=== PATIENT | female | born 1955 | race Caucasian/White ===

== ENCOUNTER → 2016-06-18 | Outpatient (CLI) | payer OTHER ==
--- NOTE | 2016-06-18 16:10 | CT ---
EXAMINATION TYPE: CT brain robby wo con DATE OF EXAM: 06/18/2016 4:02 PM COMPARISON: NONE HISTORY: 61-year-old female complaining of headache after head injury x1 week ago. CT DLP: 1257.9 mGycm Automated exposure control for dose reduction was used. Technique: Examination of the head was done in axial plane without intravenous contrast. Coronal and sagittal reconstructions performed. CT of the cervical spine was obtained in axial plane without intravenous injection of contrast mater ial. Coronal and sagittal reformatted images were obtained from the axial views for evaluation of f ractures, spinal alignment and canal. FINDINGS: Head: There is no evidence of acute intracranial hemorrhage, acute ischemic changes, mass, mass-effect, or extra-axial fluid collection. There is no effacement of cerebral sulci or basal subarachnoid cister ns. There is no hydrocephalus. There is no midline shift. Granger-white matter distinction is preserv ed. Either a prominent perivascular space or old lacunar infarct right basal ganglia. Paranasal sinuses and mastoid air cells well pneumatized. Orbits and globes are intact. No calvarial fracture. Cervical spine: No craniocervical junction abnormality, predental space widening, or prevertebral soft tissue swellin g. There is reversal of the normal cervical lordosis but with preserved alignment. No acute fracture. Moderate multilevel disc/endplate degenerative change with disc osteophyte complex formation and pau esponding facet and uncovertebral joint arthropathy. There are superimposed disc bulges at C3-C4 and C4-C5 resulting in mild and moderate spinal canal luís rowing, respectively. At C4-C5, there is mild to moderate bilateral neuroforaminal stenoses. At C5-C6, there is moderate left and mild right neuroforaminal stenosis. At C6/C7, there is mild left greater than right neuroforaminal stenosis. Sagittal and coronal reformatted images confirm above findings. COMBINED IMPRESSION: 1. No acute intracranial abnormality seen. 2. No acute fracture or malalignment of the cervical spine. There is reversal of the normal cervical lordosis and moderate multilevel spondylotic change. A superimposed posterior disc bulge at C4-C5 and C3-C4 result in moderate and mild spinal canal stenoses, respectively.
== END | disposition home or self-care (01) ==
LOC: RADCTMAIN 15:34
PROVIDERS: ATTEND Emergency Medicine
DX: S00.03XA Contusion of scalp, initial encounter (principal); M48.02 Spinal stenosis, cervical region; M50.21 Other cervical disc displacement, high cervical region; M47.812 Spondylosis without myelopathy or radiculopathy, cervical region
CPT/HCPCS: 70450; 72125

== ENCOUNTER → 2016-07-19 | Outpatient (CLI) | payer BC ==
[2016-07-19 16:55] LABS: Blood Urea Nitrogen 33 mg/dL (7-17); Non-African American GFR(MDRD) >60 (>60 ml/min/1.73 sqM)
== END | disposition home or self-care (01) ==
LOC: LABWHC1 15:53
PROVIDERS: ATTEND Internal Medicine
DX: G23.8 Other specified degenerative diseases of basal ganglia (principal)
CPT/HCPCS: 36415; 82565; 84520

== ENCOUNTER → 2016-07-20 | Outpatient (CLI) | payer BC ==
--- NOTE | 2016-07-21 08:38 | MR ---
MRI brain with and without contrast HISTORY: Abnormal CT scan brain, G27.8 calcium, scalp contusion Multiplanar multisequence and postcontrast images obtained through the brain following 10 cc MultiHan ce IV. Correlation to head CT June FINDINGS: There is no restricted diffusion. Small choroidal fissure cyst on the right suspected corre lates with patient's head CT finding. No hemorrhage or hydrocephalus. Scattered hyperintensities are present in the periventricular white matter on inversion recovery and T2-weighted sequences, there ar e approximately 30-40 lesions, the largest is only 5 to 6 mm in size. There is no abnormal enhancemen t within the brain. The orbits show symmetric. Corpus callosum, pituitary, cervical medullary junctio n, cerebellopontine angles are unremarkable. IMPRESSION: No significant abnormality is evident.
== END | disposition home or self-care (01) ==
LOC: RADMRIMAIN 18:39
PROVIDERS: ATTEND Internal Medicine
DX: G23.8 Other specified degenerative diseases of basal ganglia (principal)
CPT/HCPCS: 70553; A9577

== ENCOUNTER 2016-08-08 12:07 | Emergency (ER) | payer BC ==
[2016-08-08 12:23] VITALS: RESP 18
[2016-08-08] MEDS ORDERED: SODIUM CHLORIDE 0.9% 1,000 ML IV ONE (13:58)
[2016-08-08] MEDS ORDERED: HYDROmorphone 1 MG/ML 1 ML SYRINGE IVP STA (13:58)
[2016-08-08] MEDS ORDERED: ONDANSETRON 4 MG/2 ML VIAL IVP STA (13:58)
--- NOTE | 2016-08-08 14:11 | ED ---
Abdominal Pain HPI - General Chief Complaint: Abdominal Pain Stated Complaint: POSS KIDNEY STONE, RT SIDE Time Seen by Provider: 08/08/16 13:34 Source: patient, RN notes reviewed Mode of arrival: ambulatory Limitations: no limitations - History of Present Illness Initial Comments: Patient is a 51-year-old female presents to the emergency room for reevaluation of right-sided flank pain. Patient states she has a history of kidney stones. Patient states this feels like a kidney stone. Patient states the pain began this morning when she got up. Patient states the pain has been worsening in her right flank throughout the day. Patient states she is nauseous but denies vomiting. Patient denies abdominal pain. Patient states she has history of right ovarian cyst removal. Patient denies chest pain or shortness of breath. Patient denies headache or dizziness. Patient denies pain or burning during, trouble urinating or blood in urine. - Related Data Home Medications Medication Instructions Recorded Confirmed Multivitamins, Thera [Multivitamin] 1 tab PO DAILY 05/23/14 08/08/16 [place]-3 Fatty Acids/Fish Oil [Fish 1 cap PO DAILY 05/23/14 08/08/16 Oil 1,000 mg Softgel] Calcium Carbonate [Calcium] 600 mg PO DAILY 01/16/15 08/08/16 Cholecalciferol [Vitamin D3] 2,000 unit PO DAILY 01/16/15 08/08/16 Albuterol Sulfate [Proair Hfa] 1 - 2 puff INHALATION RT-Q6H PRN 08/08/16 Ascorbic Acid [Vitamin C] 500 mg PO DAILY 08/08/16 08/08/16 Atorvastatin Calcium [Lipitor] 20 mg PO HS 08/08/16 08/08/16 Biotin 5 mg PO DAILY 08/08/16 08/08/16 Fluticasone/Salmeterol [Advair 1 puff INHALATION RT-BID 08/08/16 08/08/16 100-50 Diskus] Loratadine 10 mg PO DAILY 08/08/16 08/08/16 Ubidecarenone [Co Q-10] 100 mg PO DAILY 08/08/16 08/08/16 Previous Rx's Medication Instructions Recorded Acetaminophen with Codeine 1 tab PO Q4H PRN #10 tab 08/08/16 [Tylenol w/codeine #3] Allergies Allergy/AdvReac Type Severity Reaction Status Date / Time silk sutures Allergy Itching Uncoded 08/08/16 12:23 Review of Systems ROS Statement: Those systems with pertinent positive or pertinent negative responses have been documented in the HPI. ROS Other: All systems not noted in ROS Statement are negative. Past Medical History Past Medical History: Asthma, Hyperlipidemia Additional Past Medical History / Comment(s): kidney stones History of Any Multi-Drug Resistant Organisms: None Reported Past Surgical History: Orthopedic Surgery Additional Past Surgical History / Comment(s): cyst on ovary removed, meniscus tear R and L knees Past Anesthesia/Blood Transfusion Reactions: No Reported Reaction Past Psychological History: No Psychological Hx Reported Smoking Status: Never smoker Past Alcohol Use History: None Reported Past Drug Use History: None Reported - Past Family History Mother Family Medical History: No Reported History General Exam - General Exam Comments Initial Comments: Sitting in exam room, no distress. Limitations: no limitations General appearance: alert, in no apparent distress Head exam: Present: atraumatic, normocephalic, normal inspection Eye exam: Present: normal appearance ENT exam: Present: normal exam Neck exam: Present: normal inspection Respiratory exam: Present: normal lung sounds bilaterally. Absent: respiratory distress Cardiovascular Exam: Present: regular rate, normal rhythm, normal heart sounds GI/Abdominal exam: Present: soft, normal bowel sounds. Absent: distended, tenderness, guarding, rebound, rigid Back exam: Present: normal inspection, full ROM, CVA tenderness (R). Absent: CVA tenderness (L) Neurological exam: Present: alert, oriented X3, CN II-XII intact, normal gait Psychiatric exam: Present: normal affect, normal mood Skin exam: Present: warm, dry, intact, normal color. Absent: rash Course Vital Signs 08/08/16 08/08/16 08/08/16 12:19 17:01 17:38 Temperature 98.0 F 98.5 F Pulse Rate 65 72 68 Respiratory 18 18 18 Rate Blood Pressure 186/92 144/73 163/82 O2 Sat by Pulse 100 100 100 Oximetry Medical Decision Making - Medical Decision Making Patient is a 61-year-old female presents to the emergency room for evaluation of right-sided flank pain. WBC 14.3. Patient also noted to have slightly elevated AST/ALT. Patient afebrile. Patient states she is feeling better after medications given. No blood noted in the urine. Offered ultrasound to rule out cholecystitis. Patient declined at this time and states she will follow-up with her primary care provider. Patient states this feels like her normal kidney stone pain and declined further workup. Patient states she has an appointment with her primary care provider tomorrow morning. Patient states she understands everything that was discussed with her. Return parameters discussed. Case discussed Dr. Camacho. - Lab Data Result diagrams: 08/08/16 14:30 08/08/16 14:30 Lab Results 08/08/16 08/08/16 08/08/16 Range/Units 14:30 14:30 16:30 WBC 14.3 H (3.8-10.6) k/uL RBC 5.04 (3.80-5.40) m/uL Hgb 15.0 (11.4-16.0) gm/dL Hct 44.3 (34.0-46.0) % MCV 87.8 (80.0-100.0) fL MCH 29.7 (25.0-35.0) pg MCHC 33.9 (31.0-37.0) g/dL RDW 13.2 (11.5-15.5) % Plt Count 206 (150-450) k/uL Neutrophils % 85 % Lymphocytes % 7 % Monocytes % 6 % Eosinophils % 2 % Basophils % 1 % Neutrophils # 12.1 H (1.3-7.7) k/uL Lymphocytes # 1.0 (1.0-4.8) k/uL Monocytes # 0.8 (0-1.0) k/uL Eosinophils # 0.3 (0-0.7) k/uL Basophils # 0.1 (0-0.2) k/uL Sodium 141 (137-145) mmol/L Potassium 4.4 (3.5-5.1) mmol/L Chloride 107 (98-107) mmol/L Carbon Dioxide 28 (22-30) mmol/L Anion Gap 6 mmol/L BUN 29 H (7-17) mg/dL Creatinine 0.91 (0.52-1.04) mg/dL Est GFR (MDRD) Af Amer >60 (>60 ml/min/1.73 sqM) Est GFR (MDRD) Non-Af >60 (>60 ml/min/1.73 sqM) Glucose 109 H (74-99) mg/dL Calcium 9.7 (8.4-10.2) mg/dL Total Bilirubin 0.6 (0.2-1.3) mg/dL AST 44 H (14-36) U/L ALT 68 H (9-52) U/L Alkaline Phosphatase 85 (38-126) U/L Total Protein 7.0 (6.3-8.2) g/dL Albumin 4.1 (3.5-5.0) g/dL Urine Color Light Yellow Urine Appearance Clear (Clear) Urine pH 8.0 (5.0-8.0) Ur Specific [place] 1.013 (1.001-1.035) Urine Protein Negative (Negative) Urine Glucose (UA) Negative (Negative) Urine Ketones 1+ H (Negative) Urine Blood Negative (Negative) Urine Nitrite Negative (Negative) Urine Bilirubin Negative (Negative) Urine Urobilinogen <2.0 (<2.0) mg/dL Ur Leukocyte Esterase Negative (Negative) - Radiology Data Radiology results: report reviewed, image reviewed Disposition Clinical Impression: Flank pain Disposition: HOME SELF-CARE Condition: Good Instructions: Flank Pain (ED) Additional Instructions: Take Tylenol or Motrin as pain. Tylenol 3 needed for severe pain. Please follow up with primary care provider in 24-48 hours for reevaluation. If any new symptom arises or symptoms worsen, return to ER as soon as possible. Prescriptions: Acetaminophen with Codeine [Tylenol w/codeine #3] 1 tab PO Q4H PRN #10 tab PRN Reason: Pain Referrals: Lucinda Prince MD [Primary Care Provider] - 1-2 days Time of Disposition: 17:23
[2016-08-08 14:44] LABS: Basophils # (A) 0.1 k/uL (0-0.2); Basophils % (A) 1 %; CH 29.1; CHCM 33.3; Eosinophils # (A) 0.3 k/uL (0-0.7); Eosinophils % (A) 2 %; HCT 44.3 % (34.0-46.0); HDW 2.77; Luc # (Auto) 0.11; Luc % (Auto) 1; Lymphocytes % (A) 7 %; MCH 29.7 pg (25.0-35.0); MCHC 33.9 g/dL (31.0-37.0); MCV 87.8 fL (80.0-100.0); Mean Platelet Volume 6.7; Monocytes # (A) 0.8 k/uL (0-1.0); Monocytes % (A) 6 %; Neutrophils # (A) 12.1 k/uL (1.3-7.7); Neutrophils % (A) 85 %; RBC 5.04 m/uL (3.80-5.40); RDW 13.2 % (11.5-15.5); WBC 14.3 k/uL (3.8-10.6); WBC (Perox) 14.38
[2016-08-08 14:54] LABS: ALT 68 U/L (9-52); AST 44 U/L (14-36); Alkaline Phosphatase 85 U/L (38-126); Anion Gap 6 mmol/L; Blood Urea Nitrogen 29 mg/dL (7-17); Calcium 9.7 mg/dL (8.4-10.2); Carbon Dioxide 28 mmol/L (22-30); Chloride 107 mmol/L (98-107); Glucose 109 mg/dL (74-99); Non-African American GFR(MDRD) >60 (>60 ml/min/1.73 sqM); Potassium 4.4 mmol/L (3.5-5.1); Sodium 141 mmol/L (137-145); Total Bilirubin 0.6 mg/dL (0.2-1.3)
--- NOTE | 2016-08-08 15:53 | XR ---
EXAMINATION TYPE: XR KUB DATE OF EXAM: 08/08/2016 3:24 PM CLINICAL DATA: 61-year-old female right-sided flank pain, [facility] COMPARISON: 05/23/2014 FINDINGS: Lung bases are clear. No evidence for free intraperitoneal air. No dilated small bowel or air-fluid levels. Scattered air and stool seen throughout the colon extendi ng distally into the rectum. Scattered mild to moderate stool. No suspicious calcifications identified. Phleboliths in the pelvis. IMPRESSION: No evidence of bowel obstruction or free intraperitoneal air.
[2016-08-08 17:03] LABS: Appearance,Urine Clear (Clear); Bilirubin,Urine Negative (Negative); Glucose,Urine (UA) Negative (Negative); Ketones,Urine 1+ (Negative); Leukocyte Esterase,Urine Negative (Negative); Nitrite,Urine Negative (Negative); Protein,Urine Negative (Negative); Specific Gravity,Urine 1.013 (1.001-1.035); UA Billing (MACRO vs. MICRO) CHEM; Urobilinogen,Urine <2.0 mg/dL (<2.0)
[2016-08-08] MEDS ORDERED: ACET/COD 300 MG/30 MG STARTER PACK 6 TAB BTL PO STA (17:35)
[2016-08-08 17:39] VITALS: BP 163/82; PULSE 68; TEMP 98.5
== END 2016-08-08 17:38 | disposition home or self-care (01) ==
LOC: EC 12:07
DX: R10.9 Unspecified abdominal pain (principal); R11.0 Nausea; R74.0 Nonspecific elevation of levels of transaminase and lactic acid dehydrogenase [LDH]; J45.909 Unspecified asthma, uncomplicated; E78.5 Hyperlipidemia, unspecified; Z79.51 Long term (current) use of inhaled steroids; Z79.899 Other long term (current) drug therapy; Z87.442 Personal history of urinary calculi; Z91.048 Other nonmedicinal substance allergy status
CPT/HCPCS: 99284; 96374; 96375; 96361; 36415; 80053; 85025; 81003; 74000; J2405; J1170

== ENCOUNTER 2016-08-09 17:25 | Emergency (ER) | payer BC ==
--- NOTE | 2016-08-09 17:52 | ED ---
General Adult HPI - General Chief complaint: Recheck/Abnormal Lab/Rx Stated complaint: back and abd pain Time Seen by Provider: 08/09/16 17:42 Source: patient, RN notes reviewed Mode of arrival: ambulatory Limitations: no limitations - History of Present Illness Initial comments: Patient's a 61-year-old female who presents emergency room today with chief complaint of being CT of the abdomen and pelvis. She does admit that she went to her family doctor's office just prior to arrival and was advised complete emergency room for a CAT scan. Patient does admit to history of kidney stones. States pain started yesterday. Does admit that in the right flank. Describes as "sharp". Patient states currently the pain is much improved after Toradol shot given to her in her doctor's office. Patient states pain and symptoms seem similar to kidney stones or sediment past. States her family doctor advised come here to the emergency room to have a CT of the abdomen and pelvis performed. She does admit that she was seen here in the emergency room yesterday had labs and x-ray obtained. Patient denies any recent fever, chills, shortness of breath, chest pain, numbness or tingling, dysuria or hematuria, constipation or diarrhea, headaches or visual changes, or any other complaints. - Related Data Home Medications Medication Instructions Recorded Confirmed Multivitamins, Thera [Multivitamin] 1 tab PO DAILY 05/23/14 08/09/16 [place]-3 Fatty Acids/Fish Oil [Fish 1 cap PO DAILY 05/23/14 08/09/16 Oil 1,000 mg Softgel] Calcium Carbonate [Calcium] 600 mg PO DAILY 01/16/15 08/09/16 Cholecalciferol [Vitamin D3] 2,000 unit PO DAILY 01/16/15 08/09/16 Ascorbic Acid [Vitamin C] 500 mg PO DAILY 08/08/16 08/09/16 Atorvastatin Calcium [Lipitor] 20 mg PO HS 08/08/16 08/09/16 Biotin 5 mg PO DAILY 08/08/16 08/09/16 Fluticasone/Salmeterol [Advair 1 puff INHALATION RT-DAILY 08/08/16 08/09/16 100-50 Diskus] Loratadine 10 mg PO DAILY PRN 08/08/16 08/09/16 Ubidecarenone [Co Q-10] 100 mg PO DAILY 08/08/16 08/09/16 Carboxymethylcellulose Sodium 1 drop BOTH EYES DAILY PRN 08/09/16 08/09/16 [Refresh Tears] Previous Rx's Medication Instructions Recorded Hydrocodone/Acetaminophen [[place] 1 each PO Q6HR PRN #20 tab 08/09/16 5-325] Ibuprofen [Motrin] 600 mg PO Q6HR PRN #40 day 08/09/16 Ondansetron Odt [Zofran ODT] 4 mg PO Q8HR PRN #20 tab 08/09/16 Tamsulosin [Flomax] 0.4 mg PO DAILY #10 cap 08/09/16 Allergies Allergy/AdvReac Type Severity Reaction Status Date / Time silk sutures Allergy Itching Uncoded 08/08/16 12:23 Review of Systems ROS Statement: Those systems with pertinent positive or pertinent negative responses have been documented in the HPI. ROS Other: All systems not noted in ROS Statement are negative. Past Medical History Past Medical History: Asthma, Hyperlipidemia Additional Past Medical History / Comment(s): kidney stones History of Any Multi-Drug Resistant Organisms: None Reported Past Surgical History: Orthopedic Surgery Additional Past Surgical History / Comment(s): cyst on ovary removed, meniscus tear R and L knees Past Anesthesia/Blood Transfusion Reactions: No Reported Reaction Past Psychological History: No Psychological Hx Reported Smoking Status: Never smoker Past Alcohol Use History: None Reported Past Drug Use History: None Reported - Past Family History Mother Family Medical History: No Reported History General Exam - General Exam Comments Initial Comments: General: The patient is awake and alert, in no distress, and does not appear acutely ill. Eye: Pupils are equal, round and reactive to light, extra-ocular movements are intact. No nystagmus. There is normal conjunctiva bilaterally. No signs of icterus. Ears, nose, mouth and throat: There are moist mucous membranes and no oral lesions. Neck: The neck is supple, there is no tenderness or JVD. Cardiovascular: There is a regular rate and rhythm. No murmur, rub or gallop is appreciated. Respiratory: Lungs are clear to auscultation, respirations are non-labored, breath sounds are equal. No wheezes, stridor, rales, or rhonchi. Gastrointestinal: Soft, non-distended, non-tender abdomen without masses or organomegaly noted. There is no rebound or guarding present. No CVA tenderness. Bowel sounds are unremarkable. Musculoskeletal: Normal ROM, no tenderness. Strength 5/5. Sensation intact. Pulses equal bilaterally 2+. Neurological: A&O x 3. CN II-XII intact, There are no obvious motor or sensory deficits. Coordination appears grossly intact. Speech is normal. Skin: Skin is warm and dry and no rashes or lesions are noted. Psychiatric: Cooperative, appropriate mood & affect, normal judgment. Limitations: no limitations Course Vital Signs 08/09/16 08/09/16 17:32 18:15 Temperature 99.4 F 99.1 F Pulse Rate 76 69 Respiratory 20 16 Rate Blood Pressure 132/69 135/77 O2 Sat by Pulse 98 97 Oximetry Medical Decision Making - Medical Decision Making Patient's CT reviewed and shows [id number] right uropathy secondary to a 4 2 mm calcification within the distal posterior right ureteral the UVJ. Patient given pain medication along with Flomax advised follow-up family doctor tomorrow. Disposition Clinical Impression: Kidney stone Disposition: HOME SELF-CARE Condition: Good Instructions: Kidney Stones (ED) Additional Instructions: Please use medication as discussed. Please follow-up with family doctor in the next 2 days of symptoms have not improved. Please return to emergency room if the symptoms increase or worsen or for any other concerns. Prescriptions: Hydrocodone/Acetaminophen [[place] 5-325] 1 each PO Q6HR PRN #20 tab PRN Reason: Pain Ibuprofen [Motrin] 600 mg PO Q6HR PRN #40 day PRN Reason: Pain Ondansetron Odt [Zofran ODT] 4 mg PO Q8HR PRN #20 tab PRN Reason: Nausea Tamsulosin [Flomax] 0.4 mg PO DAILY #10 cap Time of Disposition: 19:00
[2016-08-09 18:21] VITALS: RESP 16; TEMP 99.1
--- NOTE | 2016-08-09 18:45 | CT ---
EXAMINATION TYPE: CT abdomen pelvis wo con DATE OF EXAM: 08/09/2016 6:16 PM COMPARISON: NONE HISTORY: Pt states of left side abdominal pain. CT DLP: 266.7 mGycm Automated exposure control for dose reduction was used. TECHNIQUE: Helical acquisition of images was performed from the lung bases through the pelvis. FINDINGS: LUNG BASES: No significant abnormality is appreciated. LIVER/GB: No significant abnormality is appreciated. PANCREAS: No significant abnormality is seen. SPLEEN: No significant abnormality is seen. ADRENALS: No significant abnormality is seen. KIDNEYS: The right renal parenchyma is engorged and there is mild/moderate hydronephrosis and hydrour eter down to a 4 x 2 mm distalmost right ureteral calcification at the ureterovesical junction. There is edematous change throughout the right perirenal space. There are no focal fluid collections and n o abnormal gas collections. Bilateral 1 and 2 mm renal calcifications are also noted. There is no left obstructive uropathy. The urinary bladder is unremarkable. FREE AIR: No free air is visualized RETROPERITONEAL ADENOPATHY: None visualized REPRODUCTIVE ORGANS: No significant abnormality is seen URINARY BLADDER: No significant abnormality is seen. PELVIC ADENOPATHY: None visualized. OSSEOUS STRUCTURES: No significant abnormality is seen. BOWEL: No significant abnormality is seen. OTHER: Without intravenous contrast there is limited sensitivity for solid visceral lesions and intra vascular pathology. IMPRESSION: MILD/MODERATE RIGHT OBSTRUCTIVE UROPATHY SECONDARY TO A 4 X 2 MM CALCIFICATION WITHIN THE DISTAL MOST RIGHT URETER AT THE UVJ.
[2016-08-09] MEDS ORDERED: HYDROmorphone 1 MG/ML 1 ML SYRINGE IM STA (18:57)
[2016-08-09 19:38] VITALS: BP 139/79; PULSE 75
== END 2016-08-09 19:38 | disposition home or self-care (01) ==
LOC: EC 17:25
DX: N20.0 Calculus of kidney (principal); N28.89 Other specified disorders of kidney and ureter; J45.909 Unspecified asthma, uncomplicated; E78.5 Hyperlipidemia, unspecified; Z79.51 Long term (current) use of inhaled steroids; Z79.899 Other long term (current) drug therapy; Z91.048 Other nonmedicinal substance allergy status
CPT/HCPCS: 74176; 99284; 96372; J1170

== ENCOUNTER 2016-09-24 18:26 | Emergency (ER) | payer BC ==
[2016-09-24 18:33] VITALS: RESP 18; TEMP 97.8
[2016-09-24] MEDS ORDERED: ONDANSETRON 4 MG/2 ML VIAL IVP STA (19:07)
[2016-09-24] MEDS ORDERED: HYDROmorphone 1 MG/ML 1 ML SYRINGE IVP STA (19:07)
[2016-09-24] MEDS ORDERED: SODIUM CHLORIDE 0.9% 1,000 ML IV STA (19:07)
[2016-09-24] MEDS ORDERED: KETOROLAC 30 MG/ML 1 ML VIAL IVP STA (19:07)
[2016-09-24 19:42] LABS: Basophils # (A) 0.1 k/uL (0-0.2); Basophils % (A) 1 %; CH 29.6; CHCM 34.2; Eosinophils # (A) 0.5 k/uL (0-0.7); Eosinophils % (A) 7 %; HCT 40.1 % (34.0-46.0); HGB 13.7 gm/dL (11.4-16.0); Luc % (Auto) 3; Lymphocytes # (A) 1.5 k/uL (1.0-4.8); Lymphocytes % (A) 18 %; MCH 29.8 pg (25.0-35.0); MCHC 34.2 g/dL (31.0-37.0); MCV 87.1 fL (80.0-100.0); Mean Platelet Volume 6.9; Monocytes # (A) 0.5 k/uL (0-1.0); Monocytes % (A) 6 %; Neutrophils # (A) 5.3 k/uL (1.3-7.7); Neutrophils % (A) 66 %; RBC 4.61 m/uL (3.80-5.40); RDW 13.2 % (11.5-15.5)
[2016-09-24 19:44] LABS: Amorphous Sediment,Urine Occasional /hpf; Appearance,Urine Cloudy (Clear); Bilirubin,Urine Negative (Negative); Glucose,Urine (UA) Negative (Negative); Ketones,Urine Negative (Negative); Leukocyte Esterase,Urine Moderate (Negative); Mucus,Urine Rare /hpf; Nitrite,Urine Negative (Negative); PH, Urine 7.5 (5.0-8.0); Particle Count 3729; Protein,Urine Trace (Negative); RBC,Urine 6 /hpf (0-5); Specific Gravity,Urine 1.016 (1.001-1.035); Squamous Epithelial Cell,Urine <1 /hpf (0-4); UA Billing (MACRO vs. MICRO) MICRO; Urobilinogen,Urine <2.0 mg/dL (<2.0); WBC,Urine 11 /hpf (0-5)
[2016-09-24 19:51] LABS: ALT 32 U/L (9-52); AST 26 U/L (14-36); Alkaline Phosphatase 79 U/L (38-126); Amylase 46 U/L (30-110); Anion Gap 9 mmol/L; Blood Urea Nitrogen 28 mg/dL (7-17); Calcium 9.5 mg/dL (8.4-10.2); Carbon Dioxide 29 mmol/L (22-30); Chloride 106 mmol/L (98-107); Glucose 99 mg/dL (74-99); Non-African American GFR(MDRD) 58 (>60 ml/min/1.73 sqM); Potassium 4.5 mmol/L (3.5-5.1); Sodium 144 mmol/L (137-145); Total Bilirubin 0.6 mg/dL (0.2-1.3); Total Protein 6.8 g/dL (6.3-8.2)
--- NOTE | 2016-09-24 19:57 | XR ---
EXAMINATION TYPE: XR KUB DATE OF EXAM: 09/24/2016 COMPARISON: NONE INDICATION: Abdomen pain right flank pain TECHNIQUE: Single view abdomen upright view FINDINGS: There is a normal bowel gas pattern. Psoas margins are normal. No organomegaly is present. No free air is evident. No differential air-fluid levels are present. Mild fecal retention is present . Suspicious renal or ureteral calcifications are not identified. IMPRESSION: 1. Mild fecal retention
--- NOTE | 2016-09-24 20:15 | ED ---
Abdominal Pain HPI - General Chief Complaint: Abdominal Pain Stated Complaint: back and side pain Time Seen by Provider: 09/24/16 19:01 Source: patient Mode of arrival: ambulatory Limitations: no limitations - History of Present Illness Initial Comments: 61-year-old female presents emergency room chief complaint of acute right flank pain today. Patient reports that she knows that she has history of case and some blisters that this is a kidney stone moving. Patient states that she has no nausea. She reports that she's had normal bowel movements and urination. Patient states that she's a history of oophorectomy, no other abdominal surgeries. - Related Data Home Medications Medication Instructions Recorded Confirmed Multivitamins, Thera [Multivitamin] 1 tab PO DAILY 05/23/14 09/24/16 [place]-3 Fatty Acids/Fish Oil [Fish 1 cap PO DAILY 05/23/14 09/24/16 Oil 1,000 mg Softgel] Calcium Carbonate [Calcium] 600 mg PO DAILY 01/16/15 09/24/16 Cholecalciferol [Vitamin D3] 2,000 unit PO DAILY 01/16/15 09/24/16 Ascorbic Acid [Vitamin C] 500 mg PO DAILY 08/08/16 09/24/16 Atorvastatin Calcium [Lipitor] 20 mg PO HS 08/08/16 09/24/16 Biotin 5 mg PO DAILY 08/08/16 09/24/16 Fluticasone/Salmeterol [Advair 1 puff INHALATION RT-DAILY 08/08/16 09/24/16 100-50 Diskus] Loratadine 10 mg PO DAILY PRN 08/08/16 09/24/16 Ubidecarenone [Co Q-10] 100 mg PO DAILY 08/08/16 09/24/16 Carboxymethylcellulose Sodium 1 drop BOTH EYES DAILY PRN 08/09/16 09/24/16 [Refresh Tears] Previous Rx's Medication Instructions Recorded HYDROcodone/APAP 5-325MG [[place] 1 tab PO Q6HR PRN #12 tab 09/24/16 5-325] Allergies Allergy/AdvReac Type Severity Reaction Status Date / Time silk sutures Allergy Itching Uncoded 09/24/16 18:33 Review of Systems ROS Statement: Those systems with pertinent positive or pertinent negative responses have been documented in the HPI. ROS Other: All systems not noted in ROS Statement are negative. Past Medical History Past Medical History: Asthma, Hyperlipidemia Additional Past Medical History / Comment(s): kidney stones History of Any Multi-Drug Resistant Organisms: None Reported Past Surgical History: Orthopedic Surgery Additional Past Surgical History / Comment(s): cyst on ovary removed, meniscus tear R and L knees Past Anesthesia/Blood Transfusion Reactions: No Reported Reaction Past Psychological History: No Psychological Hx Reported Smoking Status: Never smoker Past Alcohol Use History: None Reported Past Drug Use History: None Reported - Past Family History Mother Family Medical History: No Reported History General Exam Limitations: no limitations General appearance: alert, in no apparent distress Head exam: Present: atraumatic, normocephalic, normal inspection Eye exam: Present: normal appearance, PERRL, EOMI. Absent: scleral icterus, conjunctival injection, periorbital swelling ENT exam: Present: normal exam, mucous membranes moist Neck exam: Present: normal inspection. Absent: tenderness, meningismus, lymphadenopathy Respiratory exam: Present: normal lung sounds bilaterally. Absent: respiratory distress, wheezes, rales, rhonchi, stridor Cardiovascular Exam: Present: regular rate, normal rhythm, normal heart sounds. Absent: systolic murmur, diastolic murmur, rubs, gallop, clicks GI/Abdominal exam: Present: soft, normal bowel sounds. Absent: distended, tenderness, guarding, rebound, rigid Extremities exam: Present: normal inspection, full ROM, normal capillary refill. Absent: tenderness, pedal edema, joint swelling, calf tenderness Back exam: Present: normal inspection Neurological exam: Present: alert, oriented X3, CN II-XII intact Psychiatric exam: Present: normal affect, normal mood Skin exam: Present: warm, dry, intact, normal color. Absent: rash Course Vital Signs 09/24/16 09/24/16 18:29 20:44 Temperature 97.8 F 97.8 F Pulse Rate 69 70 Respiratory 18 18 Rate Blood Pressure 204/98 183/88 O2 Sat by Pulse 100 100 Oximetry Medical Decision Making - Medical Decision Making Patient's lab work was reviewed. Mildly elevated lipase. KUB x-ray moderate stool burden. Patient will be sent home with magnesium citrate. Patient also be given medication for pain for the kidney stone. Discussed reports a taking a stool softener when on pain medication. CT scan from one month ago shows signs of retained kidney stones, with small amount of blood it is likely a subsequent kidney stone. PAtient does not want another CT scan today. Patient agrees to treatment plan will comply. Return parameters were discussed. - Lab Data Result diagrams: 09/24/16 19:25 09/24/16 19:25 Lab Results 09/24/16 09/24/16 09/24/16 Range/Units 19:25 19:25 19:25 WBC 8.0 (3.8-10.6) k/uL RBC 4.61 (3.80-5.40) m/uL Hgb 13.7 (11.4-16.0) gm/dL Hct 40.1 (34.0-46.0) % MCV 87.1 (80.0-100.0) fL MCH 29.8 (25.0-35.0) pg MCHC 34.2 (31.0-37.0) g/dL RDW 13.2 (11.5-15.5) % Plt Count 230 (150-450) k/uL Neutrophils % 66 % Lymphocytes % 18 % Monocytes % 6 % Eosinophils % 7 % Basophils % 1 % Neutrophils # 5.3 (1.3-7.7) k/uL Lymphocytes # 1.5 (1.0-4.8) k/uL Monocytes # 0.5 (0-1.0) k/uL Eosinophils # 0.5 (0-0.7) k/uL Basophils # 0.1 (0-0.2) k/uL Sodium 144 (137-145) mmol/L Potassium 4.5 (3.5-5.1) mmol/L Chloride 106 (98-107) mmol/L Carbon Dioxide 29 (22-30) mmol/L Anion Gap 9 mmol/L BUN 28 H (7-17) mg/dL Creatinine 0.98 (0.52-1.04) mg/dL Est GFR (MDRD) Af Amer >60 (>60 ml/min/1.73 sqM) Est GFR (MDRD) Non-Af 58 (>60 ml/min/1.73 sqM) Glucose 99 (74-99) mg/dL Calcium 9.5 (8.4-10.2) mg/dL Total Bilirubin 0.6 (0.2-1.3) mg/dL AST 26 (14-36) U/L ALT 32 (9-52) U/L Alkaline Phosphatase 79 (38-126) U/L Total Protein 6.8 (6.3-8.2) g/dL Albumin 4.2 (3.5-5.0) g/dL Amylase 46 (30-110) U/L Lipase 334 H (23-300) U/L Urine Color Yellow Urine Appearance Cloudy H (Clear) Urine pH 7.5 (5.0-8.0) Ur Specific [place] 1.016 (1.001-1.035) Urine Protein Trace H (Negative) Urine Glucose (UA) Negative (Negative) Urine Ketones Negative (Negative) Urine Blood Negative (Negative) Urine Nitrite Negative (Negative) Urine Bilirubin Negative (Negative) Urine Urobilinogen <2.0 (<2.0) mg/dL Ur Leukocyte Esterase Moderate H (Negative) Urine RBC 6 H (0-5) /hpf Urine WBC 11 H (0-5) /hpf Ur Squamous Epith Cells <1 (0-4) /hpf Amorphous Sediment Occasional H (None) /hpf Urine Mucus Rare H (None) /hpf Disposition Clinical Impression: Acute flank pain Disposition: HOME SELF-CARE Condition: Good Instructions: Abdominal Pain (ED) Additional Instructions: Patient arrested take pain medications, always take her pain medication for stool softener. Patient can use magnesium citrate tonight and this will help promote bowel movement at this time. Patient advised to follow-up with her primary care provider on Tuesday. Return to the emergency department if any alarming signs or symptoms occur. Prescriptions: HYDROcodone/APAP 5-325MG [[place] 5-325] 1 tab PO Q6HR PRN #12 tab PRN Reason: Pain Referrals: Lucinda Prince MD [Primary Care Provider] - 1-2 days Time of Disposition: 20:24
[2016-09-24] MEDS ORDERED: MAGNESIUM CITRATE 296 ML BOTTLE PO ONE (20:24)
[2016-09-24 20:45] VITALS: BP 183/88; PULSE 70
== END 2016-09-24 20:47 | disposition home or self-care (01) ==
LOC: EC 18:26
DX: R10.9 Unspecified abdominal pain (principal); J45.909 Unspecified asthma, uncomplicated; E78.5 Hyperlipidemia, unspecified; Z87.442 Personal history of urinary calculi; Z79.51 Long term (current) use of inhaled steroids; Z79.899 Other long term (current) drug therapy; Z91.09 Other allergy status, other than to drugs and biological substances
CPT/HCPCS: 36415; 80053; 82150; 83690; 85025; 81001; 87086; 74000; 99284; 96374; 96375 ×2; 96361; J2405; J1885; J1170

== ENCOUNTER 2017-07-23 19:45 | Emergency (ER) | payer BC ==
[2017-07-23 19:51] VITALS: RESP 18
--- NOTE | 2017-07-23 20:15 | ED ---
General Adult HPI - General Chief complaint: GI Bleed Stated complaint: GI issues Time Seen by Provider: 07/23/17 19:53 Source: patient, family Mode of arrival: ambulatory Limitations: no limitations - History of Present Illness Initial comments: Patient is a 62-year-old female presenting to the emergency department for abdominal complaints. She states for the last 3 weeks, she has been having clear mucus which eventually turned into a creamy discharge rectally. She states that she has not really had any nausea/vomiting/diarrhea but she became concerned after his symptoms did not improve. She states that all this happened after she started an antibiotic at the end of May, which was clindamycin. She called the pharmacy today and they instructed her to come to the emergency department for further evaluation. The patient also denies any blood in her stools and states that she has very infrequent abdominal cramping and nothing on consistent basis. She also denies any urinary complaints or fevers/chills. - Related Data Home Medications Medication Instructions Recorded Confirmed Multivitamins, Thera [Multivitamin] 1 tab PO DAILY 05/23/14 09/24/16 [place]-3 Fatty Acids/Fish Oil [Fish 1 cap PO DAILY 05/23/14 09/24/16 Oil 1,000 mg Softgel] Calcium Carbonate [Calcium] 600 mg PO DAILY 01/16/15 09/24/16 Cholecalciferol [Vitamin D3] 2,000 unit PO DAILY 01/16/15 09/24/16 Ascorbic Acid [Vitamin C] 500 mg PO DAILY 08/08/16 09/24/16 Atorvastatin Calcium [Lipitor] 20 mg PO HS 08/08/16 09/24/16 Biotin 5 mg PO DAILY 08/08/16 09/24/16 Fluticasone/Salmeterol [Advair 1 puff INHALATION RT-DAILY 08/08/16 09/24/16 100-50 Diskus] Loratadine 10 mg PO DAILY PRN 08/08/16 09/24/16 Ubidecarenone [Co Q-10] 100 mg PO DAILY 08/08/16 09/24/16 Carboxymethylcellulose Sodium 1 drop BOTH EYES DAILY PRN 08/09/16 09/24/16 [Refresh Tears] Previous Rx's Medication Instructions Recorded HYDROcodone/APAP 5-325MG [[place] 1 tab PO Q6HR PRN #12 tab 09/24/16 5-325] Ciprofloxacin HCl [Cipro] 500 mg PO BID 5 Days #10 tab 07/23/17 metroNIDAZOLE [Flagyl] 500 mg PO TID #42 tab 07/23/17 Allergies Allergy/AdvReac Type Severity Reaction Status Date / Time silk sutures Allergy Itching Uncoded 07/23/17 19:51 Review of Systems ROS Statement: Those systems with pertinent positive or pertinent negative responses have been documented in the HPI. Constitutional: Negative for chills, fatigue and fever. HENT: Negative for congestion. Respiratory: Negative for chest tightness, shortness of breath and wheezing. Cardiovascular: Negative for chest pain and palpitations. Gastrointestinal: Positive for abdominal pain, rectal discharge. Negative for abdominal distention, diarrhea, nausea and vomiting. Genitourinary: Negative for dysuria. Musculoskeletal: Negative for back pain, neck pain and neck stiffness. Skin: Negative for color change. Neurological: Negative for dizziness, speech difficulty, weakness and light- headedness. Psychiatric/Behavioral: Negative for agitation and confusion. The patient is not nervous/anxious. ROS Other: All systems not noted in ROS Statement are negative. Past Medical History Past Medical History: Asthma, Hyperlipidemia Additional Past Medical History / Comment(s): kidney stones History of Any Multi-Drug Resistant Organisms: None Reported Past Surgical History: Orthopedic Surgery Additional Past Surgical History / Comment(s): cyst on ovary removed, meniscus tear R and L knees Past Anesthesia/Blood Transfusion Reactions: No Reported Reaction Past Psychological History: No Psychological Hx Reported Smoking Status: Never smoker Past Alcohol Use History: None Reported Past Drug Use History: None Reported - Past Family History Mother Family Medical History: No Reported History General Exam - General Exam Comments Initial Comments: Physical Exam Constitutional: Pt is oriented to person, place, and time. Pt appears well- developed and well-nourished. No distress. HENT: Head: Normocephalic and atraumatic. Eyes: EOM are normal. Neck: Normal range of motion. Neck supple. Cardiovascular: Normal rate, regular rhythm, S1 normal, S2 normal and normal heart sounds. Exam reveals no gallop and no friction rub. No murmur heard. Pulmonary/Chest: Effort normal and breath sounds normal. No tachypnea and no bradypnea. No respiratory distress. No wheezes or rales noted. Abdominal: Soft. Bowel sounds are normal. Pt exhibits no shifting dullness, no distension, no pulsatile liver, no fluid wave, no abdominal bruit and no ascites. There is no tenderness. There is no rigidity, no rebound, no guarding, no tenderness at McBurney's point and negative Alvarez's sign. Musculoskeletal: Normal range of motion. Neurological: Pt is alert and oriented to person, place, and time. No cranial nerve deficit. Skin: Skin is warm and dry. No rash noted. Pt is not diaphoretic. No erythema. No pallor. Psychiatric: Pt has a normal mood and affect. Pt behavior is normal. Thought content normal. Limitations: no limitations Course Vital Signs 07/23/17 19:45 Temperature 98.8 F Pulse Rate 85 Respiratory 18 Rate Blood Pressure 198/97 O2 Sat by Pulse 99 Oximetry Medical Decision Making - Medical Decision Making CBC and basic metabolic panel showed no evidence of significant leukocytosis nor acute kidney injury. Patient was unable to provide stool sample and therefore laboratory studies to evaluate for C. diff for not obtained. Nonetheless, patient was treated empirically for colitis/enteritis as well as C. diff infection with ciprofloxacin as well as Flagyl. Patient was given a prescription for stool studies and advised to provide a stool sample. Urinalysis also showed no evidence of infection. She also stated that she would return to her PCP which she already had an appointment on for. Explained all labs and diagnostic test results and that we will discharge the patient home and patient is to follow up with PCP in 1-2 days and return to the ED if symptoms worsen. Pt is agreeable to plan. - Lab Data Result diagrams: 07/23/17 20:05 07/23/17 20:05 Lab Results 07/23/17 07/23/17 07/23/17 Range/Units 20:05 20:05 21:00 WBC 8.2 (3.8-10.6) k/uL RBC 5.25 (3.80-5.40) m/uL Hgb 15.7 (11.4-16.0) gm/dL Hct 45.6 (34.0-46.0) % MCV 86.9 (80.0-100.0) fL MCH 29.9 (25.0-35.0) pg MCHC 34.4 (31.0-37.0) g/dL RDW 12.7 (11.5-15.5) % Plt Count 302 (150-450) k/uL Neutrophils % 58 % Lymphocytes % 24 % Monocytes % 7 % Eosinophils % 8 % Basophils % 1 % Neutrophils # 4.8 (1.3-7.7) k/uL Lymphocytes # 2.0 (1.0-4.8) k/uL Monocytes # 0.6 (0-1.0) k/uL Eosinophils # 0.7 (0-0.7) k/uL Basophils # 0.1 (0-0.2) k/uL Sodium 147 H (137-145) mmol/L Potassium 4.2 (3.5-5.1) mmol/L Chloride 105 (98-107) mmol/L Carbon Dioxide 29 (22-30) mmol/L Anion Gap 13 mmol/L BUN 25 H (7-17) mg/dL Creatinine 0.80 (0.52-1.04) mg/dL Est GFR (CKD-EPI)AfAm >90 (>60 ml/min/1.73 sqM) Est GFR (CKD-EPI)NonAf 80 (>60 ml/min/1.73 sqM) Glucose 91 (74-99) mg/dL Calcium 10.2 (8.4-10.2) mg/dL Magnesium 2.3 (1.6-2.3) mg/dL Total Bilirubin 0.3 (0.2-1.3) mg/dL AST 31 (14-36) U/L ALT 36 (9-52) U/L Alkaline Phosphatase 104 (38-126) U/L Total Protein 7.4 (6.3-8.2) g/dL Albumin 4.4 (3.5-5.0) g/dL Urine Color Yellow Urine Appearance Clear (Clear) Urine pH 5.5 (5.0-8.0) Ur Specific [place] 1.018 (1.001-1.035) Urine Protein Negative (Negative) Urine Glucose (UA) Negative (Negative) Urine Ketones Negative (Negative) Urine Blood Negative (Negative) Urine Nitrite Negative (Negative) Urine Bilirubin Negative (Negative) Urine Urobilinogen <2.0 (<2.0) mg/dL Ur Leukocyte Esterase Small H (Negative) Urine RBC 1 (0-5) /hpf Urine WBC 3 (0-5) /hpf Ur Squamous Epith Cells 1 (0-4) /hpf Urine Mucus Few H (None) /hpf Disposition Clinical Impression: Abdominal pain Disposition: HOME SELF-CARE Condition: Good Instructions: Abdominal Pain (ED), Clostridium Difficile Infection (ED) Prescriptions: Ciprofloxacin HCl [Cipro] 500 mg PO BID 5 Days #10 tab metroNIDAZOLE [Flagyl] 500 mg PO TID #42 tab Referrals: Lucinda Prince MD [Primary Care Provider] - 1-2 days Time of Disposition: 21:26
[2017-07-23 20:24] LABS: Basophils # (A) 0.1 k/uL (0-0.2); Basophils % (A) 1 %; Eosinophils # (A) 0.7 k/uL (0-0.7); Eosinophils % (A) 8 %; HCT 45.6 % (34.0-46.0); HGB 15.7 gm/dL (11.4-16.0); Lymphocytes % (A) 24 %; MCH 29.9 pg (25.0-35.0); MCHC 34.4 g/dL (31.0-37.0); MCV 86.9 fL (80.0-100.0); Mean Platelet Volume 6.9; Monocytes # (A) 0.6 k/uL (0-1.0); Monocytes % (A) 7 %; Neutrophils # (A) 4.8 k/uL (1.3-7.7); Neutrophils % (A) 58 %; Platelet Count 302 k/uL (150-450); RBC 5.25 m/uL (3.80-5.40); RDW 12.7 % (11.5-15.5); WBC 8.2 k/uL (3.8-10.6)
[2017-07-23 20:33] LABS: ALT 36 U/L (9-52); AST 31 U/L (14-36); Albumin 4.4 g/dL (3.5-5.0); Alkaline Phosphatase 104 U/L (38-126); Anion Gap 13 mmol/L; Blood Urea Nitrogen 25 mg/dL (7-17); Calcium 10.2 mg/dL (8.4-10.2); Carbon Dioxide 29 mmol/L (22-30); Chloride 105 mmol/L (98-107); Glucose 91 mg/dL (74-99); Magnesium 2.3 mg/dL (1.6-2.3); Potassium 4.2 mmol/L (3.5-5.1); Sodium 147 mmol/L (137-145); Total Bilirubin 0.3 mg/dL (0.2-1.3); Total Protein 7.4 g/dL (6.3-8.2)
[2017-07-23] MEDS ORDERED: metroNIDAZOLE 500 MG TAB PO STA (20:47)
[2017-07-23] MEDS ORDERED: CIPROFLOXACIN HCL 500 MG TAB PO STA (20:47)
[2017-07-23 21:16] LABS: Appearance,Urine Clear (Clear); Bilirubin,Urine Negative (Negative); Blood,Urine Negative (Negative); Color,Urine Yellow; Glucose,Urine (UA) Negative (Negative); Ketones,Urine Negative (Negative); Leukocyte Esterase,Urine Small (Negative); Mucus,Urine Few /hpf; Nitrite,Urine Negative (Negative); PH, Urine 5.5 (5.0-8.0); Protein,Urine Negative (Negative); RBC,Urine 1 /hpf (0-5); Specific Gravity,Urine 1.018 (1.001-1.035); Squamous Epithelial Cell,Urine 1 /hpf (0-4); Urobilinogen,Urine <2.0 mg/dL (<2.0); WBC,Urine 3 /hpf (0-5)
[2017-07-23 21:43] VITALS: BP 157/84; PULSE 68
[2017-07-23 21:55] VITALS: TEMP 98.6
== END 2017-07-23 21:52 | disposition home or self-care (01) ==
LOC: EC 19:45
DX: R10.9 Unspecified abdominal pain (principal); J45.909 Unspecified asthma, uncomplicated; E78.5 Hyperlipidemia, unspecified; Z79.51 Long term (current) use of inhaled steroids; Z79.899 Other long term (current) drug therapy; Z91.048 Other nonmedicinal substance allergy status
CPT/HCPCS: 36415; 80053; 81001; 83735; 85025; 99284

== ENCOUNTER 2017-09-20 10:55 | Day surgery (SDC) | payer BC ==
[2017-09-19 08:41] VITALS: BMI 22.4
[~2017-09-20 10:55] MED LIST: LACTATED RINGERS 1,000 ML IV SCH
[2017-09-20 11:09] VITALS: TEMP 98.3
[2017-09-20] MEDS ORDERED: LIDOCAINE 1% 20 ML VIAL (10MG/ML) FOR IV START INTRADERMA ONE (11:14)
[2017-09-20] MEDS ORDERED: PROPOFOL 10 MG/ML 20 ML VIAL IV ONE ×2 (11:33)
[2017-09-20] MEDS ORDERED: LIDOCAINE 1% INJ 10MG/ML (20 ML MDV) ONE ×2 (11:33)
[2017-09-20] MEDS ORDERED: NALOXONE 0.4 MG/ML 1 ML VIAL IV PRN (12:12)
--- NOTE | 2017-09-20 12:16 | P.OP ---
Date of Procedure: 09/20/17 Preoperative Diagnosis: History of infectious colitis Postoperative Diagnosis: Normal colon Internal hemorrhoids Procedure(s) Performed: Colonoscopy with biopsies Anesthesia: local Surgeon: Victoria Puente Pathology: other (Biopsies of colon) Condition: stable Disposition: same day Indications for Procedure: 62-year-old female with history of infectious colitis. She was treated with antibiotics and states that this colitis had improved. Secondary to this, we plan for colonoscopy for further evaluation. The patient was explained the risks, benefits and alternatives to the procedure provided consent prior to attending the endoscopy suite. Operative Findings: Normal colon, no obvious diverticular disease, no obvious inflammatory or polypoid lesions, small internal hemorrhoids Description of Procedure: The patient was brought into the endoscopy suite. The patient was placed in left lateral decubitus position and adequate sedation was achieved using conscious sedation. A digital rectal exam was performed and internal hemorrhoids were palpated. An endoscope was then placed in the rectum and advanced to the cecum as identified by landmarks including the appendiceal orifice and the ileocecal valve. The prep was good. The colonoscope was then slowly withdrawn, examining for any mucosal abnormalities. The cecum, ascending , transverse, descending and sigmoid colon were visualized adequately. There was no obvious diverticulosis noted throughout the colon. There were no obvious inflammatory changes or polypoid lesions of the colon. There was no obvious source of bleeding. Biopsies were taken throughout the colon due to the patient's history of infectious colitis. Retroflexion was performed in the rectum and internal hemorrhoids were visible. Excess air was removed, the colonoscope was withdrawn and the procedure terminated. The patient was then transferred to the postanesthesia recovery unit in stable condition. Repeat colonoscopy should be performed in 10 years.
[2017-09-20 12:41] VITALS: BP 137/80; PULSE 77; RESP 16
== END 2017-09-20 12:53 | disposition home or self-care (01) ==
LOC: ORWHC2ENDO 10:55
PROVIDERS: ATTEND Surgery
DX: K64.8 Other hemorrhoids (principal); J45.909 Unspecified asthma, uncomplicated; E78.5 Hyperlipidemia, unspecified; Z79.51 Long term (current) use of inhaled steroids; Z79.899 Other long term (current) drug therapy; Z79.2 Long term (current) use of antibiotics; Z91.048 Other nonmedicinal substance allergy status; Z87.19 Personal history of other diseases of the digestive system
CPT/HCPCS: 88305; 45380; J2001; J2704

== ENCOUNTER 2017-12-02 19:40 | Emergency (ER) | payer BC ==
[2017-12-02 20:33] LABS: Basophils # (A) 0.1 k/uL (0-0.2); Basophils % (A) 1 %; Eosinophils # (A) 0.6 k/uL (0-0.7); Eosinophils % (A) 9 %; HCT 42.8 % (34.0-46.0); HGB 14.5 gm/dL (11.4-16.0); Lymphocytes % (A) 32 %; MCHC 33.9 g/dL (31.0-37.0); MCV 88.6 fL (80.0-100.0); Mean Platelet Volume 7.1; Monocytes # (A) 0.6 k/uL (0-1.0); Monocytes % (A) 9 %; Neutrophils # (A) 2.9 k/uL (1.3-7.7); Neutrophils % (A) 47 %; Platelet Count 210 k/uL (150-450); RBC 4.84 m/uL (3.80-5.40); RDW 12.7 % (11.5-15.5); WBC 6.3 k/uL (3.8-10.6)
[2017-12-02] MEDS ORDERED: SODIUM CHLORIDE 0.9% 1,000 ML IV STA (20:51)
[2017-12-02] MEDS ORDERED: KETOROLAC 30 MG/ML 1 ML VIAL IVP STA (20:51)
[2017-12-02] MEDS ORDERED: ONDANSETRON 4 MG/2 ML VIAL IVP STA (20:51)
[2017-12-02 20:55] LABS: ALT 54 U/L (9-52); AST 37 U/L (14-36); Albumin 4.5 g/dL (3.5-5.0); Alkaline Phosphatase 92 U/L (38-126); Amylase 55 U/L (30-110); Anion Gap 9 mmol/L; Blood Urea Nitrogen 28 mg/dL (7-17); Carbon Dioxide 26 mmol/L (22-30); Chloride 107 mmol/L (98-107); Glucose 103 mg/dL (74-99); Lipase 334 U/L (23-300); Potassium 3.7 mmol/L (3.5-5.1); Sodium 142 mmol/L (137-145); Total Bilirubin 0.6 mg/dL (0.2-1.3); Total Protein 7.3 g/dL (6.3-8.2)
[2017-12-02 21:11] LABS: Appearance,Urine Cloudy (Clear); Bacteria,Urine Rare /hpf; Bilirubin,Urine Negative (Negative); Blood,Urine Negative (Negative); Color,Urine Light Yellow; Glucose,Urine (UA) Negative (Negative); Ketones,Urine Negative (Negative); Leukocyte Esterase,Urine Negative (Negative); Mucus,Urine Rare /hpf; Nitrite,Urine Negative (Negative); Protein,Urine Negative (Negative); RBC,Urine 1 /hpf (0-5); Specific Gravity,Urine 1.012 (1.001-1.035); Squamous Epithelial Cell,Urine 1 /hpf (0-4); Urobilinogen,Urine <2.0 mg/dL (<2.0); WBC,Urine 1 /hpf (0-5)
--- NOTE | 2017-12-02 21:39 | XR ---
EXAMINATION TYPE: XR KUB DATE OF EXAM: 12/02/2017 COMPARISON: 09/24/2016 HISTORY: Flank pain TECHNIQUE: 2 views upright FINDINGS: There is no sign of intestinal obstruction or pneumoperitoneum. Fecal pattern is normal. Th ere is no sign of a mass. Lung bases are clear. There are no pathologic calcifications over the kidne ys. IMPRESSION: Nonacute abdomen. No change.
[2017-12-02] MEDS ORDERED: MORPHINE SULFATE 4 MG/ML SYRINGE IVP STA (21:40)
--- NOTE | 2017-12-02 22:27 | CT ---
EXAMINATION TYPE: CT abdomen pelvis wo con DATE OF EXAM: 12/02/2017 COMPARISON: 08/09/2016 HISTORY: Flank pain, hx of kidney stones CT DLP: 253.4 mGycm Automated exposure control for dose reduction was used. TECHNIQUE: Helical acquisition of images was performed from the lung bases through the pelvis. FINDINGS: There is subsegmental atelectasis at the lung bases. There is no pericardial effusion. There is no pl eural effusion. Liver spleen pancreas gallbladder appear normal. Bile ducts are not dilated. There is no adrenal mass . There are bilateral multiple renal calculi that measure up to 7 mm. There is right-sided hydronephr osis and perinephric edema. There is right-sided hydroureter. There is a 1 mm calcification at the fl oor of the urinary bladder on the right sided could be a ureteral calculus in the distal ureter. There is no ascites. There is no free air. The appendix appears normal. I see no intestinal wall thic kening. There are no dilated loops. Abdominal aorta is atheromatous. There is no retroperitoneal rajiv opathy. IMPRESSION: NORMAL APPENDIX. MULTIPLE BILATERAL RENAL CALCULI. RIGHT-SIDED HYDRONEPHROSIS AND HYDROURETER WITH PERINEPHRIC EDEMA. THIS APPEARS SLIGHTLY WORSE THAN O LD CT SCAN. THERE IS PROBABLY A 1 MM OBSTRUCTING CALCULUS AT THE RIGHT URETERAL VESICLE JUNCTION.
--- NOTE | 2017-12-02 22:54 | ED ---
General Adult HPI - General Source: patient, RN notes reviewed Mode of arrival: ambulatory Limitations: no limitations <Jj Dial P - Last Filed: 12/03/17 01:42> <Kelin Gill P - Last Filed: 12/04/17 05:05> - General Chief complaint: Abdominal Pain Stated complaint: poss kidney stone Time Seen by Provider: 12/02/17 20:37 - History of Present Illness Initial comments: 62-year-old female presents to the emergency department for a chief complaint of right flank pain radiating to the right groin 2 hours. Patient states she noticed the pain today. Patient states she does have a history of kidney stones. Patient states she has never vomited from kidney stones before but has been vomiting. Patient currently rates the pain as a 10 out of 10. Patient denies any pain with urination. Patient denies noticing any blood in the urine. Patient has not seen a urologist. Patient has been having normal bowel movements. Patient has no other complaints at this time including shortness of breath, chest pain, abdominal pain, nausea or vomiting, headache, or visual changes. (Jj Dial) - Related Data Home Medications Medication Instructions Recorded Confirmed Multivitamins, Thera [Multivitamin] 1 tab PO HS 05/23/14 12/02/17 [place]-3 Fatty Acids/Fish Oil [Fish 1 cap PO HS 05/23/14 12/02/17 Oil 1,000 mg Softgel] Calcium Carbonate [Calcium] 600 mg PO HS 01/16/15 12/02/17 Cholecalciferol [Vitamin D3] 2,000 unit PO HS 01/16/15 12/02/17 Ascorbic Acid [Vitamin C] 500 mg PO HS 08/08/16 12/02/17 Atorvastatin Calcium [Lipitor] 20 mg PO HS 08/08/16 12/02/17 Biotin 10 mg PO HS 08/08/16 12/02/17 Fluticasone/Salmeterol [Advair 1 puff INHALATION RT-DAILY 08/08/16 12/02/17 100-50 Diskus] Loratadine 10 mg PO DAILY PRN 08/08/16 12/02/17 Ubidecarenone [Co Q-10] 200 mg PO HS 08/08/16 12/02/17 Carboxymethylcellulose Sodium 2 drop BOTH EYES DAILY 08/09/16 12/02/17 [Refresh Tears] Melatonin 10 mg PO HS PRN 09/19/17 12/02/17 Previous Rx's Medication Instructions Recorded Ibuprofen [Motrin] 600 mg PO Q6HR PRN #20 tab 12/02/17 Ondansetron [Zofran ODT] 4 mg PO Q8HR PRN #15 tab 12/02/17 Tamsulosin [Flomax] 0.4 mg PO DAILY #20 cap 12/02/17 Allergies Allergy/AdvReac Type Severity Reaction Status Date / Time silk sutures AdvReac Itching Uncoded 12/02/17 22:31 Review of Systems ROS Other: All systems not noted in ROS Statement are negative. <Jj Dial P - Last Filed: 12/03/17 01:42> ROS Other: All systems not noted in ROS Statement are negative. <Kelin Gill P - Last Filed: 12/04/17 05:05> ROS Statement: Those systems with pertinent positive or pertinent negative responses have been documented in the HPI. Past Medical History Past Medical History: Asthma, Hyperlipidemia Additional Past Medical History / Comment(s): kidney stones, POSSIBLE C-DIFF IN JULY 2017 History of Any Multi-Drug Resistant Organisms: None Reported Past Surgical History: Orthopedic Surgery Additional Past Surgical History / Comment(s): LAPAROTOMY -cyst on ovary removed , meniscus tear R and L knees-ARTHROSCOPIC BROOKS KNEE Past Anesthesia/Blood Transfusion Reactions: No Reported Reaction Past Psychological History: No Psychological Hx Reported Smoking Status: Never smoker Past Alcohol Use History: None Reported Past Drug Use History: None Reported - Past Family History Mother Family Medical History: No Reported History <Jj Dial P - Last Filed: 12/03/17 01:42> General Exam Limitations: no limitations General appearance: alert, in no apparent distress Head exam: Present: atraumatic, normocephalic, normal inspection Eye exam: Present: normal appearance. Absent: scleral icterus, conjunctival injection ENT exam: Present: normal exam, mucous membranes moist Neck exam: Present: normal inspection, full ROM. Absent: tenderness, meningismus, lymphadenopathy Respiratory exam: Present: normal lung sounds bilaterally. Absent: respiratory distress, wheezes, rales, rhonchi, stridor Cardiovascular Exam: Present: regular rate, normal rhythm, normal heart sounds. Absent: systolic murmur, diastolic murmur, rubs, gallop, clicks GI/Abdominal exam: Present: soft, normal bowel sounds. Absent: distended, tenderness, guarding, rebound, rigid Back exam: Present: CVA tenderness (R). Absent: CVA tenderness (L) Neurological exam: Present: alert, oriented X3, CN II-XII intact Psychiatric exam: Present: normal affect, normal mood <Jj Dial P - Last Filed: 12/03/17 01:42> Vital Signs 12/02/17 12/02/17 19:48 23:54 Temperature 98 F 98.9 F Pulse Rate 71 67 Respiratory 20 18 Rate Blood Pressure 180/104 151/80 O2 Sat by Pulse 98 97 Oximetry Medical Decision Making - Lab Data Result diagrams: 12/02/17 20:20 12/02/17 20:20 <Jj Dial P - Last Filed: 12/03/17 01:42> - Lab Data Result diagrams: 12/02/17 20:20 12/02/17 20:20 <Kelin Gill P - Last Filed: 12/04/17 05:05> - Medical Decision Making 62-year-old female with right-sided flank pain radiating to the right groin 2 hours. Patient is also vomiting. Patient has a history of kidney stones. Patient denies fevers or chills at home. Pulse rate 71, respiratory 20. No evidence of SIRS criteria met. CBC unremarkable. CMP shows a lipase of 334 which is consistent with past readings. No evidence of a urinary tract infection. CT does show right-sided hydronephrosis and hydroureter with periNephric edema. This appears slightly worse than old computed tomography scan. There is probably a 1 mm obstructing calculus at the right ureteral vesicle junction. Patient was given Toradol and morphine in the emergency department which helped greatly with her pain. She was also given Zofran. At this point patient is expressing pain from a kidney stone he can follow up with urologist. She agrees to this plan. She'll be given a starter pack of Tylenol 3 as pharmacies are likely closed as well as Zofran, Flomax, and Motrin for home use. She will return to the emergency Department if she has any worsening symptoms. Patient was initially 180/104 for blood pressure likely due to pain. After pain was controlled with Toradol and morphine patient's blood pressure stabilized to 151/80. She will follow up with primary care for this. (Jj Dial) I was available for consultation in the emergency department. The history and physical exam were done by the midlevel provider. I was consulted for this patient's care. I reviewed the case with the midlevel provider and based on their presentation of the patient, I agree with the assessment, medical decision making and plan of care as documented. (Kelin Gill) - Lab Data Lab Results 12/02/17 12/02/17 12/02/17 Range/Units 20:20 20:20 21:00 WBC 6.3 (3.8-10.6) k/uL RBC 4.84 (3.80-5.40) m/uL Hgb 14.5 (11.4-16.0) gm/dL Hct 42.8 (34.0-46.0) % MCV 88.6 (80.0-100.0) fL MCH 30.0 (25.0-35.0) pg MCHC 33.9 (31.0-37.0) g/dL RDW 12.7 (11.5-15.5) % Plt Count 210 (150-450) k/uL Neutrophils % 47 % Lymphocytes % 32 % Monocytes % 9 % Eosinophils % 9 % Basophils % 1 % Neutrophils # 2.9 (1.3-7.7) k/uL Lymphocytes # 2.0 (1.0-4.8) k/uL Monocytes # 0.6 (0-1.0) k/uL Eosinophils # 0.6 (0-0.7) k/uL Basophils # 0.1 (0-0.2) k/uL Sodium 142 (137-145) mmol/L Potassium 3.7 (3.5-5.1) mmol/L Chloride 107 (98-107) mmol/L Carbon Dioxide 26 (22-30) mmol/L Anion Gap 9 mmol/L BUN 28 H (7-17) mg/dL Creatinine 0.80 (0.52-1.04) mg/dL Est GFR (CKD-EPI)AfAm >90 (>60 ml/min/1.73 sqM) Est GFR (CKD-EPI)NonAf 80 (>60 ml/min/1.73 sqM) Glucose 103 H (74-99) mg/dL Calcium 10.0 (8.4-10.2) mg/dL Total Bilirubin 0.6 (0.2-1.3) mg/dL AST 37 H (14-36) U/L ALT 54 H (9-52) U/L Alkaline Phosphatase 92 (38-126) U/L Total Protein 7.3 (6.3-8.2) g/dL Albumin 4.5 (3.5-5.0) g/dL Amylase 55 (30-110) U/L Lipase 334 H (23-300) U/L Urine Color Light Yellow Urine Appearance Cloudy H (Clear) Urine pH 8.0 (5.0-8.0) Ur Specific [place] 1.012 (1.001-1.035) Urine Protein Negative (Negative) Urine Glucose (UA) Negative (Negative) Urine Ketones Negative (Negative) Urine Blood Negative (Negative) Urine Nitrite Negative (Negative) Urine Bilirubin Negative (Negative) Urine Urobilinogen <2.0 (<2.0) mg/dL Ur Leukocyte Esterase Negative (Negative) Urine RBC 1 (0-5) /hpf Urine WBC 1 (0-5) /hpf Ur Squamous Epith Cells 1 (0-4) /hpf Urine Bacteria Rare H (None) /hpf Urine Mucus Rare H (None) /hpf Disposition Is patient prescribed a controlled substance at d/c from ED?: No Time of Disposition: 23:19 <Jj Dial P - Last Filed: 12/03/17 01:42> <Kelin Gill P - Last Filed: 12/04/17 05:05> Clinical Impression: Ureterolithiasis Disposition: HOME SELF-CARE Condition: Good Instructions: Kidney Stones (ED) Additional Instructions: Please follow up with primary care in 1-2 days. Follow-up with urology as well. Take prescriptions as directed. Return to the emergency department if you have any worsening symptoms. Prescriptions: Ibuprofen [Motrin] 600 mg PO Q6HR PRN #20 tab PRN Reason: Pain Ondansetron [Zofran ODT] 4 mg PO Q8HR PRN #15 tab PRN Reason: Nausea Tamsulosin [Flomax] 0.4 mg PO DAILY #20 cap Referrals: Lucinda Prince MD [Primary Care Provider] - 1-2 days Smith Galarza MD [STAFF PHYSICIAN] - 1-2 days
[2017-12-02] MEDS ORDERED: ACET/COD 300 MG/30 MG STARTER PACK 6 TAB BTL PO STA (23:40)
[2017-12-02 23:55] VITALS: BP 151/80; PULSE 67; RESP 18; TEMP 98.9
== END 2017-12-03 00:03 | disposition home or self-care (01) ==
LOC: EC 19:40
DX: N13.2 Hydronephrosis with renal and ureteral calculous obstruction (principal); N13.4 Hydroureter; N04.9 Nephrotic syndrome with unspecified morphologic changes; J45.909 Unspecified asthma, uncomplicated; E78.5 Hyperlipidemia, unspecified; Z79.51 Long term (current) use of inhaled steroids; Z79.899 Other long term (current) drug therapy; Z91.048 Other nonmedicinal substance allergy status
CPT/HCPCS: 36415; 80053; 82150; 83690; 85025; 81001; 74018; 74176; 99285; 96374; 96375 ×2; 96361; J2270; J2405; J1885

== ENCOUNTER → 2018-01-30 | Outpatient (CLI) | payer BC ==
--- NOTE | 2018-01-30 14:00 | US ---
EXAMINATION TYPE: US kidneys/renal and bladder DATE OF EXAM: 01/30/2018 COMPARISON: CT 2018 US CLINICAL HISTORY: Hydronephrosis N13.30. Renal stones EXAM MEASUREMENTS: Right Kidney: 9.9 x 4.8 x 5.9 cm Left Kidney: 9.9 x 6.2 x 5.5 cm Post Void Residual Volume: 9.0 mL Right Kidney: multiple hyperechoic foci seen with largest shadowing calcification noted inferior pole = 0.8 x 0.5 x 0.5cm Left Kidney: multiple small hyperechoic foci noted with largest at inferior pole = 0.3 x 0.3 x 0.3cm. Bladder: wnl Bilateral Jets seen: yes Normal Post Void Residual: yes No solid or cystic mass is identified. No evidence for hydronephrosis at this time. IMPRESSION: 1. Nonobstructing nephrolithiasis.
== END | disposition home or self-care (01) ==
LOC: RADUSWWP 12:53
PROVIDERS: ATTEND Internal Medicine
DX: N20.0 Calculus of kidney (principal)
CPT/HCPCS: 76770

== ENCOUNTER 2018-03-11 20:47 | Emergency (ER) | payer BC ==
[2018-03-11 21:02] VITALS: TEMP 99.8
[2018-03-11] MEDS ORDERED: ONDANSETRON ODT 4 MG TAB PO STA (21:05)
[2018-03-11] MEDS ORDERED: SODIUM CHLORIDE 0.9% 1,000 ML IV ONE (21:07)
--- NOTE | 2018-03-11 22:08 | US ---
EXAMINATION TYPE: US kidneys/renal and bladder DATE OF EXAM: 03/11/2018 COMPARISON: NONE CLINICAL HISTORY: Pain. EXAM MEASUREMENTS: Right Kidney: 10.3 x 4.3 x 4.2 cm Left Kidney: 11.1 x 5.4 x 5.2 cm Right Kidney: multiple echogenic foci noted largest few measured(0.4 x 0.3 x 0.4 cm) (0.3 x 0.2 x 0.3 cm) Left Kidney: hydronephrosis noted, multiple echogenic focus noted largest few measured (0.4 x 0.4x 0. 4 cm)(0.6 x 0.5 x 0.6 cm) Bladder: wnl Bilateral Jets seen: Yes IMPRESSION: 1. Multiple bilateral nonobstructing renal calculi as above. 2. Mild left-sided hydronephrosis. Bilateral ureteral jets are identified. The presence of an intermi ttent left-sided obstructing stone should be considered.
[2018-03-11 22:16] VITALS: RESP 16
[2018-03-11] MEDS ORDERED: KETOROLAC 30 MG/ML 1 ML VIAL IVP STA (22:22)
[2018-03-11 22:23] LABS: Basophils % (A) 0 %; Eosinophils # (A) 0.6 k/uL (0-0.7); Eosinophils % (A) 7 %; Lymphocytes # (A) 1.2 k/uL (1.0-4.8); Lymphocytes % (A) 13 %; MCH 29.7 pg (25.0-35.0); MCHC 33.3 g/dL (31.0-37.0); MCV 89.2 fL (80.0-100.0); Mean Platelet Volume 6.9; Monocytes # (A) 0.5 k/uL (0-1.0); Monocytes % (A) 5 %; Neutrophils # (A) 7.1 k/uL (1.3-7.7); Neutrophils % (A) 74 %; Platelet Count 214 k/uL (150-450); RBC 5.04 m/uL (3.80-5.40); RDW 12.9 % (11.5-15.5); WBC 9.6 k/uL (3.8-10.6)
[2018-03-11 22:36] LABS: Albumin 4.3 g/dL (3.5-5.0); Potassium 4.4 mmol/L (3.5-5.1); Total Bilirubin 0.3 mg/dL (0.2-1.3); Total Protein 7.2 g/dL (6.3-8.2)
[2018-03-11] MEDS ORDERED: MORPHINE SULFATE 4 MG/ML SYRINGE IV STA (22:56)
[2018-03-11 23:01] LABS: Appearance,Urine Clear (Clear); Bacteria,Urine Rare /hpf; Bilirubin,Urine Negative (Negative); Blood,Urine Large (Negative); Color,Urine Yellow; Glucose,Urine (UA) Negative (Negative); Hyaline Casts,Urine 3 /lpf (0-2); Ketones,Urine Negative (Negative); Leukocyte Esterase,Urine Small (Negative); Mucus,Urine Occasional /hpf; Nitrite,Urine Negative (Negative); Protein,Urine Negative (Negative); RBC,Urine 32 /hpf (0-5); Specific Gravity,Urine 1.012 (1.001-1.035); Squamous Epithelial Cell,Urine <1 /hpf (0-4); Urobilinogen,Urine <2.0 mg/dL (<2.0)
--- NOTE | 2018-03-11 23:07 | ED ---
Abdominal Pain HPI - General Chief Complaint: Abdominal Pain Stated Complaint: Kidney stone/Has Hx Source: patient, RN notes reviewed, old records reviewed Mode of arrival: ambulatory Limitations: no limitations - History of Present Illness Initial Comments: 62-year-old female patient with long history of renal calculi presents to ER with 1 day history of left posterior axillary line flank pain, nausea vomiting. Patient states that this feels the same to previous the symptoms she has had in the past. Patient states that the pain feels like it is a "writhing pain" in her left posterior axillary line, patient states she did not feel comfortable , patient denies any pain radiation. Patient has not taken any medication for this pain. Patient denies dysuria, hematuria, fever chills, chest pain, shortness of breath, abdominal pain, headache, changes in vision. Systemic: Pt denies fatigue, myalgia, fever/chills, rash. Pt denies weakness, night sweats, weight loss. Neuro: Pt denies headache, visual disturbances, syncope or pre-syncope. HEENT: Pt denies ocular discharge or irritation, otalgia, rhinorrhea, pharyngitis or notable lymphadenopathy. Cardiopulmonary: Pt denies chest pain, SOB, heart palpitations, dyspnea on exertion. Abdominal/GI: Pt denies abdominal pain. : Pt denies dysuria, burning w/ urination, frequency/urgency. Denies new onset urinary or bowel incontinence. MSK: Pt denies myalgia, loss of strength or function in extremities. - Related Data Home Medications Medication Instructions Recorded Confirmed Multivitamins, Thera [Multivitamin] 1 tab PO HS 05/23/14 12/02/17 [place]-3 Fatty Acids/Fish Oil [Fish 1 cap PO HS 05/23/14 12/02/17 Oil 1,000 mg Softgel] Calcium Carbonate [Calcium] 600 mg PO HS 01/16/15 12/02/17 Cholecalciferol [Vitamin D3] 2,000 unit PO HS 01/16/15 12/02/17 Ascorbic Acid [Vitamin C] 500 mg PO HS 08/08/16 12/02/17 Atorvastatin Calcium [Lipitor] 20 mg PO HS 08/08/16 12/02/17 Biotin 10 mg PO HS 08/08/16 12/02/17 Fluticasone/Salmeterol [Advair 1 puff INHALATION RT-DAILY 08/08/16 12/02/17 100-50 Diskus] Loratadine 10 mg PO DAILY PRN 08/08/16 12/02/17 Ubidecarenone [Co Q-10] 200 mg PO HS 08/08/16 12/02/17 Carboxymethylcellulose Sodium 2 drop BOTH EYES DAILY 08/09/16 12/02/17 [Refresh Tears] Melatonin 10 mg PO HS PRN 09/19/17 12/02/17 Previous Rx's Medication Instructions Recorded Ibuprofen [Motrin] 600 mg PO Q6HR PRN #20 tab 12/02/17 Ondansetron [Zofran ODT] 4 mg PO Q8HR PRN #15 tab 12/02/17 Tamsulosin [Flomax] 0.4 mg PO DAILY #20 cap 12/02/17 Ibuprofen [Motrin] 600 mg PO Q6HR PRN #20 day 03/11/18 Ondansetron [Zofran] 4 mg PO Q8HR PRN #15 tab 03/11/18 Tamsulosin [Flomax] 0.4 mg PO DAILY 10 Days #10 cap 03/11/18 Allergies Allergy/AdvReac Type Severity Reaction Status Date / Time silk sutures AdvReac Itching Uncoded 03/11/18 20:54 Review of Systems ROS Statement: Those systems with pertinent positive or pertinent negative responses have been documented in the HPI. ROS Other: All systems not noted in ROS Statement are negative. Past Medical History Past Medical History: Asthma, Hyperlipidemia Additional Past Medical History / Comment(s): kidney stones, POSSIBLE C-DIFF IN JULY 2017 History of Any Multi-Drug Resistant Organisms: None Reported Past Surgical History: Orthopedic Surgery Additional Past Surgical History / Comment(s): LAPAROTOMY -cyst on ovary removed , meniscus tear R and L knees-ARTHROSCOPIC BROOKS KNEE Past Anesthesia/Blood Transfusion Reactions: No Reported Reaction Past Psychological History: No Psychological Hx Reported Smoking Status: Never smoker Past Alcohol Use History: None Reported Past Drug Use History: None Reported - Past Family History Mother Family Medical History: No Reported History General Exam - General Exam Comments Initial Comments: Constitutional: NAD, AOX3, Pt has pleasant affect. HEENT: NC/AT, trachea midline, neck supple, no lymphadenopathy. Posterior pharynx non erythematous, without exudates. External ears appear normal, without discharge. Mucous membranes moist. Eyes PERRLA, EOM intact. There is no scleral icterus. No pallor noted. Cardiopulmonary: RRR, no murmurs, rubs or gallops, no JVD noted. Lungs CTAB in anterior and posterior hernandez. No peripheral edema. Abdominal exam: Abdomen soft and non-distended. Abdomen non-tender to palpation in all 4 quadrants. Bowel sounds active in LLQ. No hepatosplenomegaly. CVA tenderness negative bilaterally. No ecchymoses. Eddy/[place] Call sign negative. Flanks nontender to palpation bilaterally. Neuro: CN II-XII intact. Pt ambulatory, pt have active ROM in all extremities. Limitations: no limitations Course Vital Signs 03/11/18 03/11/18 03/11/18 20:50 22:13 22:59 Temperature 99.8 F H Pulse Rate 102 H 71 79 Respiratory 22 16 16 Rate Blood Pressure 185/109 186/101 141/99 O2 Sat by Pulse 98 98 98 Oximetry Medical Decision Making - Medical Decision Making 62-year-old female patient with long history of renal calculi presents to ER with 1 day history of left posterior axillary line flank pain, nausea vomiting. Patient states that this feels the same to previous the symptoms she has had in the past. Patient states that the pain feels like it is a "writhing pain" in her left posterior axillary line, patient states she did not feel comfortable , patient denies any pain radiation. Patient has not taken any medication for this pain. Patient denies dysuria, hematuria, fever chills, chest pain, shortness of breath, abdominal pain, headache, changes in vision. Physical exam did not display any acute pathologic findings. Systems examined including neuro, cardiopulmonary, abdominal, HEENT, MSK. Laboratory investigations including CBC/CMP were not impressive. UA displayed blood, hCG was negative. Ultrasound of kidneys displayed multiple bilateral nonobstructing renal calculi. Mild left-sided hydronephrosis, bilateral ureteral jets identified. The presence of intermittent left-sided obstructing stone should be considered. Pt dx with renal calculi. Patient to discharge and follow-up to urology. Patient represcribed ibuprofen, Flomax, Zofran. Patient initially moderately hypertensive, mildly tachycardic upon presentation to ED, likely secondary to pain. After the patient pain well-controlled, vital signs normalized. PT to f/ u with urology in 1-2 days. Patient to follow with PCP in 1-2 days. Patient to return to ED if any new signs or symptoms develop including worsening pain, nausea and diarrhea, abdominal pain, chest pain, shortness of breath. Case discussed with Dr. Downs. - Lab Data Result diagrams: 03/11/18 22:09 03/11/18 22:09 Lab Results 03/11/18 03/11/18 03/11/18 Range/Units 22:09 22:09 22:09 WBC 9.6 (3.8-10.6) k/uL RBC 5.04 (3.80-5.40) m/uL Hgb 15.0 (11.4-16.0) gm/dL Hct 45.0 (34.0-46.0) % MCV 89.2 (80.0-100.0) fL MCH 29.7 (25.0-35.0) pg MCHC 33.3 (31.0-37.0) g/dL RDW 12.9 (11.5-15.5) % Plt Count 214 (150-450) k/uL Neutrophils % 74 % Lymphocytes % 13 % Monocytes % 5 % Eosinophils % 7 % Basophils % 0 % Neutrophils # 7.1 (1.3-7.7) k/uL Lymphocytes # 1.2 (1.0-4.8) k/uL Monocytes # 0.5 (0-1.0) k/uL Eosinophils # 0.6 (0-0.7) k/uL Basophils # 0.0 (0-0.2) k/uL Sodium 143 (137-145) mmol/L Potassium 4.4 (3.5-5.1) mmol/L Chloride 108 H (98-107) mmol/L Carbon Dioxide 27 (22-30) mmol/L Anion Gap 8 mmol/L BUN 26 H (7-17) mg/dL Creatinine 0.87 (0.52-1.04) mg/dL Est GFR (CKD-EPI)AfAm 83 (>60 ml/min/1.73 sqM) Est GFR (CKD-EPI)NonAf 72 (>60 ml/min/1.73 sqM) Glucose 115 H (74-99) mg/dL Plasma Lactic Acid [place] (0.7-2.0) mmol/L Calcium 10.0 (8.4-10.2) mg/dL Total Bilirubin 0.3 (0.2-1.3) mg/dL AST 35 (14-36) U/L ALT 43 (9-52) U/L Alkaline Phosphatase 91 (38-126) U/L Total Protein 7.2 (6.3-8.2) g/dL Albumin 4.3 (3.5-5.0) g/dL Urine Color Urine Appearance (Clear) Urine pH (5.0-8.0) Ur Specific [place] (1.001-1.035) Urine Protein (Negative) Urine Glucose (UA) (Negative) Urine Ketones (Negative) Urine Blood (Negative) Urine Nitrite (Negative) Urine Bilirubin (Negative) Urine Urobilinogen (<2.0) mg/dL Ur Leukocyte Esterase (Negative) Urine RBC (0-5) /hpf Urine WBC (0-5) /hpf Ur Squamous Epith Cells (0-4) /hpf Urine Bacteria (None) /hpf Hyaline Casts (0-2) /lpf Urine Mucus (None) /hpf Urine HCG, Qual Not Detected (Not Detectd) 03/11/18 03/11/18 Range/Units 22:09 22:09 WBC (3.8-10.6) k/uL RBC (3.80-5.40) m/uL Hgb (11.4-16.0) gm/dL Hct (34.0-46.0) % MCV (80.0-100.0) fL MCH (25.0-35.0) pg MCHC (31.0-37.0) g/dL RDW (11.5-15.5) % Plt Count (150-450) k/uL Neutrophils % % Lymphocytes % % Monocytes % % Eosinophils % % Basophils % % Neutrophils # (1.3-7.7) k/uL Lymphocytes # (1.0-4.8) k/uL Monocytes # (0-1.0) k/uL Eosinophils # (0-0.7) k/uL Basophils # (0-0.2) k/uL Sodium (137-145) mmol/L Potassium (3.5-5.1) mmol/L Chloride (98-107) mmol/L Carbon Dioxide (22-30) mmol/L Anion Gap mmol/L BUN (7-17) mg/dL Creatinine (0.52-1.04) mg/dL Est GFR (CKD-EPI)AfAm (>60 ml/min/1.73 sqM) Est GFR (CKD-EPI)NonAf (>60 ml/min/1.73 sqM) Glucose (74-99) mg/dL Plasma Lactic Acid [place] 1.3 (0.7-2.0) mmol/L Calcium (8.4-10.2) mg/dL Total Bilirubin (0.2-1.3) mg/dL AST (14-36) U/L ALT (9-52) U/L Alkaline Phosphatase (38-126) U/L Total Protein (6.3-8.2) g/dL Albumin (3.5-5.0) g/dL Urine Color Yellow Urine Appearance Clear (Clear) Urine pH 7.0 (5.0-8.0) Ur Specific [place] 1.012 (1.001-1.035) Urine Protein Negative (Negative) Urine Glucose (UA) Negative (Negative) Urine Ketones Negative (Negative) Urine Blood Large H (Negative) Urine Nitrite Negative (Negative) Urine Bilirubin Negative (Negative) Urine Urobilinogen <2.0 (<2.0) mg/dL Ur Leukocyte Esterase Small H (Negative) Urine RBC 32 H (0-5) /hpf Urine WBC 7 H (0-5) /hpf Ur Squamous Epith Cells <1 (0-4) /hpf Urine Bacteria Rare H (None) /hpf Hyaline Casts 3 H (0-2) /lpf Urine Mucus Occasional H (None) /hpf Urine HCG, Qual (Not Detectd) Disposition Clinical Impression: Renal calculi Disposition: HOME SELF-CARE Condition: Good Instructions: Kidney Stones (ED) Additional Instructions: Patient to adhere to previously discussed treatment plan and will take medication(s) as directed. Patient to follow up with PCP in 1-2 days. Patient to return to ED if symptoms do not improve. Prescriptions: Ibuprofen [Motrin] 600 mg PO Q6HR PRN #20 day PRN Reason: Pain Ondansetron [Zofran] 4 mg PO Q8HR PRN #15 tab PRN Reason: Nausea Tamsulosin [Flomax] 0.4 mg PO DAILY 10 Days #10 cap Is patient prescribed a controlled substance at d/c from ED?: No Referrals: Lucinda Prince MD [Primary Care Provider] - 1-2 days Smith Galarza MD [STAFF PHYSICIAN] - 1-2 days Time of Disposition: 23:14
[2018-03-11 23:33] VITALS: BP 144/78; PULSE 69
== END 2018-03-11 23:30 | disposition home or self-care (01) ==
LOC: EC 20:47
DX: N13.2 Hydronephrosis with renal and ureteral calculous obstruction (principal); R00.0 Tachycardia, unspecified; J45.909 Unspecified asthma, uncomplicated; E78.5 Hyperlipidemia, unspecified; Z87.442 Personal history of urinary calculi; Z79.899 Other long term (current) drug therapy; Z79.51 Long term (current) use of inhaled steroids; Z91.048 Other nonmedicinal substance allergy status
CPT/HCPCS: 36415; 80053; 83605; 85025; 81001; 81025; 87086; 76770; 99284; 96374; 96375; 96361; J2270; J1885

== ENCOUNTER → 2018-04-05 | Outpatient (CLI) | payer BC ==
--- NOTE | 2018-04-05 11:05 | XR ---
EXAMINATION TYPE: XR KUB DATE OF EXAM: 04/05/2018 10:27 AM CLINICAL HISTORY: Bilateral kidney stones. TECHNIQUE: Single supine KUB image of the abdomen is obtained. COMPARISON: Abdominal x-ray and CT December 02, 2017. FINDINGS: There are 2-3 calculi scattered throughout the left kidney including suspected 7 mm calculu s medially near level of left L4 transverse process. Right-sided nephrolithiasis is not as well seen on x-ray versus CT. Gas is seen in nondistended stomach. Gas is seen in nondistended small bowel loops. Gas and fecal mat erial is seen in nondistended colon. There is patchy left basilar linear scarring and/or atelectasis redemonstrated. Visualized osseous structures are intact. IMPRESSION: Right-sided nephrolithiasis less well seen on plain film. Left-sided nephrolithiasis rede monstrated.
== END | disposition home or self-care (01) ==
LOC: RADXRMAIN 09:50
PROVIDERS: ATTEND Urology
DX: N20.0 Calculus of kidney (principal)
CPT/HCPCS: 74018

== ENCOUNTER 2018-12-30 06:19 | Emergency (ER) | payer BC ==
[2018-12-30 06:45] VITALS: RESP 18; TEMP 98
[2018-12-30] MEDS ORDERED: KETOROLAC 30 MG/ML 1 ML VIAL IVP STA (06:48)
[2018-12-30] MEDS ORDERED: ONDANSETRON 4 MG/2 ML VIAL IVP STA (06:48)
[2018-12-30] MEDS ORDERED: SODIUM CHLORIDE 0.9% 1,000 ML IV STA (06:48)
[2018-12-30] MEDS ORDERED: SODIUM CHLORIDE 0.9% 500 ML 500 ML IV STA (06:48)
--- NOTE | 2018-12-30 07:16 | ED ---
Abdominal Pain HPI - General Chief Complaint: Abdominal Pain Stated Complaint: Abd/Back Pain Time Seen by Provider: 12/30/18 06:47 Source: patient, RN notes reviewed Mode of arrival: ambulatory Limitations: no limitations - History of Present Illness Initial Comments: 63-year-old female presents emergency Department chief complaint right flank pain. Patient states that symptoms started complaints ago but have been more progressive and persistent. Patient states that she cannot tolerate the pain is morning. She does feel nauseated denies any vomiting. Patient states that nothing makes the pain feel better or worse at this time. Patient states that she's had normal bowel movements no dysuria no hematuria. Patient had multiple kidney stones in the past and states the pain seems similar to this. - Related Data Home Medications Medication Instructions Recorded Confirmed Multivitamins, Thera [Multivitamin] 1 tab PO HS 05/23/14 12/02/17 Keller-3 Fatty Acids/Fish Oil [Fish 1 cap PO HS 05/23/14 12/02/17 Oil 1,000 mg Softgel] Calcium Carbonate [Calcium] 600 mg PO HS 01/16/15 12/02/17 Cholecalciferol [Vitamin D3] 2,000 unit PO HS 01/16/15 12/02/17 Ascorbic Acid [Vitamin C] 500 mg PO HS 08/08/16 12/02/17 Atorvastatin Calcium [Lipitor] 20 mg PO HS 08/08/16 12/02/17 Biotin 10 mg PO HS 08/08/16 12/02/17 Fluticasone/Salmeterol [Advair 1 puff INHALATION RT-DAILY 08/08/16 12/02/17 100-50 Diskus] Loratadine 10 mg PO DAILY PRN 08/08/16 12/02/17 Ubidecarenone [Co Q-10] 200 mg PO HS 08/08/16 12/02/17 Carboxymethylcellulose Sodium 2 drop BOTH EYES DAILY 08/09/16 12/02/17 [Refresh Tears] Melatonin 10 mg PO HS PRN 09/19/17 12/02/17 Previous Rx's Medication Instructions Recorded Ibuprofen [Motrin] 600 mg PO Q6HR PRN #20 tab 12/02/17 Ondansetron [Zofran ODT] 4 mg PO Q8HR PRN #15 tab 12/02/17 Tamsulosin [Flomax] 0.4 mg PO DAILY #20 cap 12/02/17 Ibuprofen [Motrin] 600 mg PO Q6HR PRN #20 day 03/11/18 Ondansetron [Zofran] 4 mg PO Q8HR PRN #15 tab 03/11/18 Tamsulosin [Flomax] 0.4 mg PO DAILY 10 Days #10 cap 03/11/18 Ketorolac [Toradol] 10 mg PO Q8HR #15 tab 12/30/18 Ondansetron Odt [Zofran Odt] 4 mg PO Q8HR PRN #10 tab 12/30/18 Tamsulosin [Flomax] 0.4 mg PO DAILY #7 cap 12/30/18 Allergies Allergy/AdvReac Type Severity Reaction Status Date / Time silk sutures AdvReac Itching Uncoded 12/30/18 06:45 Review of Systems ROS Statement: Those systems with pertinent positive or pertinent negative responses have been documented in the HPI. ROS Other: All systems not noted in ROS Statement are negative. Past Medical History Past Medical History: Asthma, Hyperlipidemia Additional Past Medical History / Comment(s): kidney stones, History of Any Multi-Drug Resistant Organisms: None Reported Past Surgical History: Orthopedic Surgery Additional Past Surgical History / Comment(s): LAPAROTOMY -cyst on ovary removed, meniscus tear R and L knees-ARTHROSCOPIC BROOKS KNEE Past Anesthesia/Blood Transfusion Reactions: No Reported Reaction Past Psychological History: No Psychological Hx Reported Smoking Status: Never smoker Past Alcohol Use History: None Reported Past Drug Use History: None Reported - Past Family History Mother Family Medical History: No Reported History General Exam Limitations: no limitations General appearance: alert, in no apparent distress Head exam: Present: atraumatic, normocephalic, normal inspection Eye exam: Present: normal appearance, PERRL, EOMI. Absent: scleral icterus, conjunctival injection, periorbital swelling ENT exam: Present: normal exam, normal oropharynx, mucous membranes moist Neck exam: Present: normal inspection, full ROM. Absent: tenderness, meningismus, lymphadenopathy Respiratory exam: Present: normal lung sounds bilaterally. Absent: respiratory distress, wheezes, rales, rhonchi, stridor Cardiovascular Exam: Present: regular rate, normal rhythm, normal heart sounds. Absent: systolic murmur, diastolic murmur, rubs, gallop, clicks GI/Abdominal exam: Present: soft, normal bowel sounds. Absent: distended, tenderness, guarding, rebound, rigid Back exam: Absent: CVA tenderness (R), CVA tenderness (L) Skin exam: Present: warm, dry, intact, normal color. Absent: rash Course Vital Signs 12/30/18 12/30/18 12/30/18 06:42 07:27 08:11 Temperature 98.0 F Pulse Rate 75 63 65 Respiratory 18 18 18 Rate Blood Pressure 199/99 173/93 146/78 O2 Sat by Pulse 98 99 99 Oximetry - Reevaluation(s) Reevaluation #1: 12/30/18 07:50 Patient reevaluated pain is improved after Toradol. Medical Decision Making - Medical Decision Making 63-year-old female presented for right flank pain. Patient has a history kidney stones. Patient's labs, urinalysis reviewed. Patient had improvement with Toradol she is symptom-free at this time. Patient has seen Dr. Galarza in the past. Patient will follow-up with urology again and return parameters were discussed. - Lab Data Result diagrams: 12/30/18 07:25 12/30/18 07:25 Lab Results 12/30/18 12/30/18 12/30/18 Range/Units 06:46 07:25 07:25 WBC 9.0 (3.8-10.6) k/uL RBC 4.60 (3.80-5.40) m/uL Hgb 13.9 (11.4-16.0) gm/dL Hct 41.0 (34.0-46.0) % MCV 89.2 (80.0-100.0) fL MCH 30.3 (25.0-35.0) pg MCHC 33.9 (31.0-37.0) g/dL RDW 14.9 (11.5-15.5) % Plt Count 209 (150-450) k/uL Neutrophils % 80 % Lymphocytes % 9 % Monocytes % 7 % Eosinophils % 3 % Basophils % 1 % Neutrophils # 7.2 (1.3-7.7) k/uL Lymphocytes # 0.8 L (1.0-4.8) k/uL Monocytes # 0.6 (0-1.0) k/uL Eosinophils # 0.3 (0-0.7) k/uL Basophils # 0.1 (0-0.2) k/uL Sodium 142 (137-145) mmol/L Potassium 4.1 (3.5-5.1) mmol/L Chloride 108 H (98-107) mmol/L Carbon Dioxide 26 (22-30) mmol/L Anion Gap 8 mmol/L BUN 30 H (7-17) mg/dL Creatinine 0.98 (0.52-1.04) mg/dL Est GFR (CKD-EPI)AfAm 71 (>60 ml/min/1.73 sqM) Est GFR (CKD-EPI)NonAf 62 (>60 ml/min/1.73 sqM) Glucose 116 H (74-99) mg/dL Calcium 9.1 (8.4-10.2) mg/dL Total Bilirubin 0.5 (0.2-1.3) mg/dL AST 28 (14-36) U/L ALT 29 (9-52) U/L Alkaline Phosphatase 93 (38-126) U/L Total Protein 6.8 (6.3-8.2) g/dL Albumin 4.0 (3.5-5.0) g/dL Amylase 44 (30-110) U/L Lipase 323 H (23-300) U/L Urine Color Yellow Urine Appearance Clear (Clear) Urine pH 7.0 (5.0-8.0) Ur Specific [place] 1.021 (1.001-1.035) Urine Protein Negative (Negative) Urine Glucose (UA) Negative (Negative) Urine Ketones Negative (Negative) Urine Blood Negative (Negative) Urine Nitrite Negative (Negative) Urine Bilirubin Negative (Negative) Urine Urobilinogen <2.0 (<2.0) mg/dL Ur Leukocyte Esterase Negative (Negative) Disposition Clinical Impression: Right flank pain, Kidney stones Disposition: HOME SELF-CARE Condition: Stable Instructions (If sedation given, give patient instructions): Kidney Stones (ED) Additional Instructions: Please return to the Emergency Department if symptoms worsen or any other conc erns. Prescriptions: Tamsulosin [Flomax] 0.4 mg PO DAILY #7 cap Ketorolac [Toradol] 10 mg PO Q8HR #15 tab Ondansetron Odt [Zofran Odt] 4 mg PO Q8HR PRN #10 tab PRN Reason: Nausea Is patient prescribed a controlled substance at d/c from ED?: No Referrals: Lucinda Prince MD [Primary Care Provider] - 1-2 days Smith Galarza MD [STAFF PHYSICIAN] - 1-2 days Time of Disposition: 08:34
[2018-12-30 07:49] LABS: Basophils # (A) 0.1 k/uL (0-0.2); Basophils % (A) 1 %; Eosinophils # (A) 0.3 k/uL (0-0.7); Eosinophils % (A) 3 %; HGB 13.9 gm/dL (11.4-16.0); Lymphocytes # (A) 0.8 k/uL (1.0-4.8); Lymphocytes % (A) 9 %; MCH 30.3 pg (25.0-35.0); MCHC 33.9 g/dL (31.0-37.0); MCV 89.2 fL (80.0-100.0); Mean Platelet Volume 6.9; Monocytes # (A) 0.6 k/uL (0-1.0); Monocytes % (A) 7 %; Neutrophils # (A) 7.2 k/uL (1.3-7.7); Neutrophils % (A) 80 %; Platelet Count 209 k/uL (150-450); RDW 14.9 % (11.5-15.5)
--- NOTE | 2018-12-30 07:49 | XR ---
EXAMINATION TYPE: XR KUB , ONE VIEW DATE OF EXAM ORDERED: 12/30/2018 HISTORY: abdominal pain. COMPARISON: Previous study dated 04/05/2018. FINDINGS: There is a stable 6.7 mm calcific density overlying the expected course of the proximal ri ght ureter. No other definite unusual calcifications are seen. Lung bases are clear. The abdominal ga s pattern is normal. IMPRESSION: I CANNOT EXCLUDE LEFT-SIDED NEPHROLITHIASIS.
[2018-12-30 07:55] LABS: Appearance,Urine Clear (Clear); Bilirubin,Urine Negative (Negative); Blood,Urine Negative (Negative); Color,Urine Yellow; Glucose,Urine (UA) Negative (Negative); Ketones,Urine Negative (Negative); Leukocyte Esterase,Urine Negative (Negative); Nitrite,Urine Negative (Negative); Protein,Urine Negative (Negative); Specific Gravity,Urine 1.021 (1.001-1.035); Urobilinogen,Urine <2.0 mg/dL (<2.0)
[2018-12-30 08:10] LABS: Calcium 9.1 mg/dL (8.4-10.2); Potassium 4.1 mmol/L (3.5-5.1); Total Bilirubin 0.5 mg/dL (0.2-1.3); Total Protein 6.8 g/dL (6.3-8.2)
[2018-12-30 08:12] VITALS: BP 146/78; PULSE 65
[2018-12-30] MEDS ORDERED: ACET/COD 300 MG/30 MG STARTER PACK 6 TAB BTL PO STA (08:36)
== END 2018-12-30 08:55 | disposition home or self-care (01) ==
LOC: EC 06:19
DX: N20.0 Calculus of kidney (principal); J45.909 Unspecified asthma, uncomplicated; E78.5 Hyperlipidemia, unspecified; Z79.51 Long term (current) use of inhaled steroids; Z79.899 Other long term (current) drug therapy; Z91.048 Other nonmedicinal substance allergy status
CPT/HCPCS: 99284 ×2; 96374 ×2; 96375 ×2; 96361 ×2; 36415; 80053; 82150; 83690; 85025; 81003; 74018; J2405; J1885

== ENCOUNTER → 2019-04-30 | Outpatient (CLI) | payer BC ==
--- NOTE | 2019-04-30 08:43 | CT ---
EXAMINATION TYPE: CT facial bones wo con DATE OF EXAM: 04/30/2019 COMPARISON: MRI brain July 20, 2016. CT brain June 18, 2016 HISTORY: Acute maxillary sinusitis, unspecified per order. Headaches and dizziness with facial conges tion on and off since January [address] DLP: 593.60 mGycm. Automated Exposure Control for Dose Reduction was Utilized. TECHNIQUE: CT scan of the sinuses is performed without contrast, axial images are obtained, coronal r eformatted images are also reviewed. FINDINGS: There is 1.1 cm mucous retention cyst or polyp in the posterior left maxillary sinus. An ab normal mucosal thickening throughout bilateral maxillary sinuses. There is 4 mm mucous retention cyst or polyp in the posterior aspect left lateral wall left sphenoid sinus image 24. Remainder paranasal sinuses are clear without suspicious opacification or air-fluid levels. Stable 5 mm ossific projecti on anterior right frontal sinus axial image 36 favoring benign osteoma. The ostiomeatal complex is p atent bilaterally on the coronal images. Nasal septum slightly deviated to left of midline. Visualized portion of mastoid air cells show no abnormal opacification. The globes are intact bilate rally. Visualized brain parenchyma shows mild age-related atrophy. IMPRESSION: Chronic paranasal sinus disease, no acute sinusitis.
== END ==
LOC: RADCTMAIN 07:20
PROVIDERS: ATTEND Internal Medicine
DX: J32.8 Other chronic sinusitis (principal)
CPT/HCPCS: 70486

== ENCOUNTER → 2019-06-08 | Outpatient (CLI) | payer BC ==
--- NOTE | 2019-06-08 12:57 | ECHOS ---
STRESS ECHOCARDIOGRAM INDICATIONS: Chest pain. MEDICATIONS: Losartan, atorvastatin, Albuterol, Advair BASELINE HEART RATE: 84 BASELINE BLOOD PRESSURE: 140/78 MAXIMUM HEART RATE: 149 MAXIMUM BLOOD PRESSURE: 206/80 85% MPHR: 133 100% MPHR: 156 METS: 11.1 MAXIMUM STAGE REACHED: 4 TOTAL EXERCISE TIME: 9:30 CLINICAL INFORMATION: Baseline heart rate 84 beats per minute. Baseline blood pressure 140/78 mmHg. Baseline 12-lead ECG shows sinus rhythm with early repolarization abnormality inferolaterally with occasional PVCs. Patient exercised on a Thomas protocol for 9 minutes, 30 seconds achieving a peak heart rate of 149 beats per minute. Mildly hypertensive response to exercise. Peak blood pressure 206/80 mmHg. There was no ECG evidence for ischemia. No arrhythmias noted. The baseline 2D echo images showed normal LV size and systolic function without segmental wall motion abnormalities. At peak exercise, there was excellent augmentation of overall LV contractility without development of any wall motion abnormalities. At recovery, regional global LV systolic function remained normal. IMPRESSION: 1. No ECG evidence for ischemia. 2. No echocardiographic evidence for ischemia. 3. Occasional PVCs noted with exercise. 4. Good exercise capacity. 5. Baseline ECG abnormalities of inferior ST elevation which resolved during exercise. MMODL / IJN: [id number] /
== END | disposition home or self-care (01) ==
LOC: RADNMMAIN 09:52
PROVIDERS: ATTEND Internal Medicine
DX: R07.9 Chest pain, unspecified (principal)
CPT/HCPCS: 93351

== ENCOUNTER → 2021-03-01 | Outpatient (CLI) | payer OTHER ==
--- NOTE | 2021-03-01 11:20 | XR ---
EXAMINATION TYPE: XR knee complete RT DATE OF EXAM: 03/01/2021 COMPARISON: NONE HISTORY: 65 years Female. STUDY INDICATION GIVEN: CONTUSION OF RT PATELLA . TECHNIQUE: Right knee radiographs 3 views IMPRESSION: No acute osseous or articular abnormalities. No significant joint effusion or soft tissue swelling. Mild knee joint osteoarthrosis. Multiple calcifications posterior to the knee joint may be vascular.
== END ==
LOC: RADXRMAIN 11:01
PROVIDERS: ATTEND Emergency Medicine
DX: S80.01XA Contusion of right knee, initial encounter (principal); M17.11 Unilateral primary osteoarthritis, right knee; X58.XXXA Exposure to other specified factors, initial encounter